=== PATIENT | male | born 1935 | race Caucasian/White ===

== ENCOUNTER 2017-06-20 14:00 | Inpatient (IN) | payer OTHER, MEDICARE ==
[~2017-06-20] VITALS: Ht 177.8 cm; Wt 68.4 kg
[2017-06-20] MEDS ORDERED: PIPERACILLIN/TAZOBACTAM 4.5 GM/100ML D5W IV STA (14:10)
[2017-06-20] MEDS ORDERED: SODIUM CHLORIDE 0.9% 1000ML 1,000 ML IV STA (14:10)
--- NOTE | 2017-06-20 14:37 | DIAGNOSTIC IMAGING REPORT ---
CHEST ONE VIEW PORTABLE CLINICAL HISTORY: Fever COMPARISON STUDY: No previous studies for comparison. FINDINGS: The heart is at the upper limits of normal in size. 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 There is no failure. There is indistinctness of the left cardiophrenic angle. This could indicate a minimal effusion, left basilar airspace opacity, or simply be cardiophrenic angle fat pad.[ IMPRESSION: 1. Indistinctness of the left cardiophrenic angle. This is nonspecific and could indicate a minimal effusion, left basal airspace opacity, or simply prominent cardiophrenic angle fat 2. No evidence of failure. Electronically signed by: Markus Mcdonnell M.D. 06/20/2017 2:36 PM Dictated Date/Time: 06/20/2017 2:34 PM
[2017-06-20] MEDS ORDERED: OPTIRAY 320 IV PRN (14:45)
[2017-06-20 15:03] LABS: ISTAT CREATININE 1.1 mg/dl (0.6-1.3); ISTAT IONIZED CALCIUM 1.21 mmol/l (1.12-1.32); ISTAT POTASSIUM 4.5 mEq/L (3.3-5.0)
[2017-06-20 15:27] LABS: BASO % 0.4 %; BASO ABS # 0.04 K/uL (0-0.2); EOS ABS # 0.21 K/uL (0-0.5); HEMATOCRIT 38.5 % (42-52); IG# 0.06 K/uL (0.00-0.02); LYMPH % 16.3 %; MEAN CELL VOLUME 92.1 fL (80-100); MEAN CORPUSCULAR HEMOGLOBIN 31.1 pg (25-34); MEAN CORPUSCULAR HGB CONC 33.8 g/dl (32-36); MEAN PLATELET VOLUME 9.6 fL (7.4-10.4); MONO % 13.4 %; MONO ABS # 1.39 K/uL (0.11-0.59); NEUT % 67.3 %; NEUT ABS # 7.01 K/uL (1.4-6.5); PLATELET COUNT 170 K/uL (130-400); RED CELL DISTRIBUTION WIDTH CV 14.1 % (11.5-14.5); RED CELL DISTRIBUTION WIDTH SD 47.5 fL (36.4-46.3); WHITE BLOOD COUNT 10.41 K/uL (4.8-10.8)
[2017-06-20] MEDS ORDERED: ZINC40OI13 TOP (15:27)
[2017-06-20] MEDS ORDERED: ACET650S10 PR (15:27)
[2017-06-20] MEDS ORDERED: FURO-85 PO (15:27)
[2017-06-20] MEDS ORDERED: CARB10TA6 PO ×2 (15:27)
[2017-06-20] MEDS ORDERED: ACET-1256 PO (15:27)
[2017-06-20] MEDS ORDERED: ASPI81TA28 PO (15:27)
[2017-06-20] MEDS ORDERED: ZINC1PST TOP (15:27)
[2017-06-20] MEDS ORDERED: ATOR10TA82 PO (15:27)
[2017-06-20] MEDS ORDERED: TRAZ50TA35 PO (15:27)
[2017-06-20] MEDS ORDERED: TERB1CRE32 TOP (15:27)
[2017-06-20] MEDS ORDERED: NZRCR TOP (15:27)
[2017-06-20] MEDS ORDERED: SENN-83 PO (15:27)
[2017-06-20] MEDS ORDERED: METO25TA3 PO (15:27)
[2017-06-20] MEDS ORDERED: ASPI300S PR (15:27)
[2017-06-20] MEDS ORDERED: CYAN10005 PO (15:27)
[2017-06-20] MEDS ORDERED: SELE1SHA3 TOP (15:27)
[2017-06-20] MEDS ORDERED: LEVO25TA5 PO (15:27)
[2017-06-20] MEDS ORDERED: GABA-113 PO (15:27)
[2017-06-20] MEDS ORDERED: WHITGEL TOP (15:27)
[2017-06-20 15:28] LABS: ALBUMIN 2.5 gm/dl (3.4-5.0); BLOOD UREA NITROGEN 20 mg/dl (7-18); CALCIUM 9.2 mg/dl (8.5-10.1); CARBON DIOXIDE 25 mmol/L (21-32); CREATININE 1.11 mg/dl (0.60-1.40); GLUCOSE 89 mg/dl (70-99); POTASSIUM 3.9 mmol/L (3.5-5.1); SODIUM 144 mmol/L (136-145)
[2017-06-20 15:29] LABS: ALT/SGPT 10 U/L (12-78); AST/SGOT 22 U/L (15-37)
[2017-06-20 15:31] LABS: ALKALINE PHOSPHATASE 82 U/L (45-117); CKMB 1.9 ng/ml (0.5-3.6); TOTAL PROTEIN 6.7 gm/dl (6.4-8.2)
[2017-06-20 15:35] LABS: INR 1.1 (0.9-1.1)
--- NOTE | 2017-06-20 15:45 | DIAGNOSTIC IMAGING REPORT ---
CT ABD/PELVIS IV CONTRAST ONLY CLINICAL HISTORY: Lower abdominal/scrotal drainage. UNRESPONSIVE PATIENT. COMPARISON STUDY: None. TECHNIQUE: Following the IV administration of 110 mL of Optiray-320, CT scan of the abdomen and pelvis was performed from the lung bases to the proximal femurs. Images are reviewed in the axial, sagittal, and coronal planes. IV contrast was administered without complication. A dose lowering technique was utilized adhering to the principles of ALARA. CT DOSE: 1163.73 mGy.cm FINDINGS: Lower chest: There are bibasal atelectatic changes. Liver: The contrast-enhanced liver is normal in size, contour, and attenuation. There is no intrahepatic biliary ductal dilatation. The hepatic veins and portal veins are patent. Gallbladder: Unremarkable. Spleen: Normal in size and attenuation. Pancreas: The pancreas is atrophic. There is no ductal dilatation. No masses are visualized. Adrenal glands: Unremarkable. Kidneys: There is a 15 mm lower pole left renal cyst. There are multiple right renal cysts including a septated complex 10 cm cyst containing septal calcifications. Bowel: There are no transition zones indicate bowel obstruction. The appendix appears normal. There is colonic diverticulosis. There are no acute peridiverticular inflammatory changes. Peritoneum: There is no intraperitoneal free air or abdominal ascites. Vasculature: The abdominal aorta is normal in course and caliber. Adenopathy: None. Pelvic viscera: There is a 5 cm fluid collection inferior to the anal verge. This contains gas bubbles. This likely represents an abscess. This may be localized to the posterior scrotum. Clinical correlation this regard is advocated. Skeletal structures: No destructive osseous lesions are seen. IMPRESSION: 1. No evidence of bowel obstruction. No evidence of free air 2. No evidence of acute diverticulitis. Normal appendix 3. Complex 10 cm right renal cyst with septal calcifications 4. 5 cm fluid collection inferior to the anal verge. This contains air bubbles and likely represents an abscess. This may be localized to the posterior scrotum. Clinical correlation in this regard is advocated Electronically signed by: Markus Mcdonnell M.D. 06/20/2017 3:44 PM Dictated Date/Time: 06/20/2017 3:38 PM
[2017-06-20] MEDS ORDERED: CLINDAMYCIN IV 900 MG in DEXTROSE 5% 100ML 100 ML IV STA (17:52)
[2017-06-20] MEDS ORDERED: PIPERACILL/TAZOBAC CONSULT ACTIVE PRN (18:15)
[2017-06-20] MEDS ORDERED: ACETAMINOPHEN 650 MG SUPP PR PRN (18:15)
[2017-06-20] MEDS ORDERED: HYDROmorphone INJ 0.5 MG/0.5 ML SYR IV PRN (18:15)
--- NOTE | 2017-06-20 18:25 | EMERGENCY ROOM VISIT NOTE ---
History Report prepared by Greg: Bing Avilez Under the Supervision of: Dr. Faizan Massey D.O. First contact with patient: 14:03 Chief Complaint: OTHER COMPLAINT History of Present Illness The patient is an 81 year old male who presents to the Emergency Room brought in by EMS with complaints of constant scrotum pain for five days. Per family, the patient has been complaining of genital pain and has been declining from his baseline for five days. Per family, the patient is normally communicative and awake. Per family, the patient denies any abdominal pain, though notes a cough at baseline. Per family, the patient woke up with his undershirt drenched in sweat. Per EMS, the patient was lethargic upon arrival and groans with a sternal rub. Per EMS, the patient's oxygen saturation was 91% on RA. The patient has Parkinson's disease. The patient is a DNR and the patient does not want intubation if he stops breathing. HPI is limited secondary to patient's condition. Source of History: family, EMS Onset: five day Position: other (scrotum) Quality: other (pain) Timing: constant Note: Notes declining from baseline and sweating. Review of Systems ROS is limited secondary to patient's condition. Past Medical & Surgical Medical Problems: (1) Parkinson disease (2) Scrotal abscess Family History No pertinent family history Social History Marital Status: Housing Status: lives with significant other Occupation Status: unemployed Current/Historical Medications Scheduled Aspirin (Aspirin Ec), 81 MG PO DAILY Atorvastatin (Lipitor), 10 MG PO DAILY Carbidopa-Levodopa (Carbidopa/Levodopa Odt), 1 TAB PO HS Carbidopa-Levodopa (Carbidopa/Levodopa Odt), 1 TAB PO TID Cyanocobalamin (Vitamin B-12), 1,000 MCG PO DAILY Furosemide (Lasix), 20 MG PO MWF Gabapentin (Neurontin), 300 MG PO TIDM Ketoconazole (Ketoconazole), 1 APPLN TOP BID Levothyroxine Sodium (Levothyroxine Sodium), 25 MCG PO QAM Metoprolol Succ (Toprol Xl) (Toprol-Xl), 12.5 MG PO HS Selenium Sulfide (Selsun Blue), 1 DOSE TOP 2XWK Sennosides-Docusate Sodium (Senexon-S), 3 TABS PO AMPM Terbinafine Hcl (Topical) (Lamisil At), 1 APPLN TOP HS Trazodone Hcl (Trazodone), 25 MG PO HS White Petrolatum (Petrolatum White), 1 APPLN TOP QAM Zinc Oxide (Topical) (Desitin), 1 APPLN TOP HS Zinc Oxide (Topical) (Desitin Maximum Strength), 1 APPLN TOP QS Scheduled PRN Acetaminophen (Tylenol), 500 MG PO Q4H PRN for Mild Pain Acetaminophen (Tylenol), 650 MG MN Q6H PRN for Temp Aspirin (Aspirin), 300 MG MN Q6H PRN for Temp Allergies Coded Allergies: No Known Allergies (Unverified , 06/20/17) Physical Exam Vital Signs Date Time Temp Pulse Resp B/P (MAP) Pulse Ox O2 Delivery O2 Flow Rate FiO2 06/20/17 17:57 60 16 123/79 98 Room Air 06/20/17 16:44 60 16 120/75 97 Room Air 06/20/17 15:18 61 06/20/17 14:50 60 14 103/67 97 Room Air 06/20/17 14:10 36.6 91 16 111/75 95 Room Air Physical Exam GENERAL: Lying in bed, ill-appearing, disheveled mild distress EYE EXAM: normal conjunctiva. eyes closed, PERRL OROPHARYNX: no exudate, no erythema, lips, buccal mucosa, and tongue normal and mucous membranes are moist NECK: supple, no nuchal rigidity, no adenopathy, non-tender LUNGS: Coarse breath sounds bilaterally. Normal chest wall mechanics HEART: no murmurs, S1 normal and S2 normal ABDOMEN: abdomen soft, non-tender, normo-active bowel sounds, no masses, no rebound or guarding. SKIN: no rashes and no bruising UPPER EXTREMITIES: upper extremities are grossly normal. LOWER EXTREMITIES: No pitting edema. : Scrotum is indurated and erythematous. Multiple large ulcers, red purulent drainage and induration bilaterally. Multiple small ulcers on inferior aspect of scrotum with one large ulcer with dark blood intermittently draining. Scrotum is indurated and firm. NEURO EXAM: Moans to sternal rub and moves UE and LE. Medical Decision & Procedures ER Provider Diagnostic Interpretation: Radiology results as stated below per my review and the radiologist's interpretation: CHEST ONE VIEW PORTABLE CLINICAL HISTORY: Fever COMPARISON STUDY: No previous studies for comparison. FINDINGS: The heart is at the upper limits of normal in size. 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 There is no failure. There is indistinctness of the left cardiophrenic angle. This could indicate a minimal effusion, left basilar airspace opacity, or simply be cardiophrenic angle fat pad.[ IMPRESSION: 1. Indistinctness of the left cardiophrenic angle. This is nonspecific and could indicate a minimal effusion, left basal airspace opacity, or simply prominent cardiophrenic angle fat 2. No evidence of failure. Electronically signed by: Markus Mcdonnell M.D. 06/20/2017 2:36 PM Dictated Date/Time: 06/20/2017 2:[address] ABD/PELVIS IV CONTRAST ONLY CLINICAL HISTORY: Lower abdominal/scrotal drainage. UNRESPONSIVE PATIENT. COMPARISON STUDY: None. TECHNIQUE: Following the IV administration of 110 mL of Optiray-320, CT scan of the abdomen and pelvis was performed from the lung bases to the proximal femurs. Images are reviewed in the axial, sagittal, and coronal planes. IV contrast was administered without complication. A dose lowering technique was utilized adhering to the principles of ALARA. CT DOSE: 1163.73 mGy.cm FINDINGS: Lower chest: There are bibasal atelectatic changes. Liver: The contrast-enhanced liver is normal in size, contour, and attenuation. There is no intrahepatic biliary ductal dilatation. The hepatic veins and portal veins are patent. Gallbladder: Unremarkable. Spleen: Normal in size and attenuation. Pancreas: The pancreas is atrophic. There is no ductal dilatation. No masses are visualized. Adrenal glands: Unremarkable. Kidneys: There is a 15 mm lower pole left renal cyst. There are multiple right renal cysts including a septated complex 10 cm cyst containing septal calcifications. Bowel: There are no transition zones indicate bowel obstruction. The appendix appears normal. There is colonic diverticulosis. There are no acute peridiverticular inflammatory changes. Peritoneum: There is no intraperitoneal free air or abdominal ascites. Vasculature: The abdominal aorta is normal in course and caliber. Adenopathy: None. Pelvic viscera: There is a 5 cm fluid collection inferior to the anal verge. This contains gas bubbles. This likely represents an abscess. This may be localized to the posterior scrotum. Clinical correlation this regard is advocated. Skeletal structures: No destructive osseous lesions are seen. IMPRESSION: 1. No evidence of bowel obstruction. No evidence of free air 2. No evidence of acute diverticulitis. Normal appendix 3. Complex 10 cm right renal cyst with septal calcifications 4. 5 cm fluid collection inferior to the anal verge. This contains air bubbles and likely represents an abscess. This may be localized to the posterior scrotum. Clinical correlation in this regard is advocated Electronically signed by: Markus Mcdonnell M.D. 06/20/2017 3:44 PM Dictated Date/Time: 06/20/2017 3:38 PM Laboratory Results 06/20/17 15:15 Red Blood Count 4.18, Mean Corpuscular Volume 92.1, Mean Corpuscular Hemoglobin 31.1, Mean Corpuscular Hemoglobin Concent 33.8, Mean Platelet Volume 9.6, Neutrophils (%) (Auto) 67.3, Lymphocytes (%) (Auto) 16.3, Monocytes (%) (Auto) 13.4, Eosinophils (%) (Auto) 2.0, Basophils (%) (Auto) 0.4, Neutrophils # (Auto ) 7.01, Lymphocytes # (Auto) 1.70, Monocytes # (Auto) 1.39, Eosinophils # (Auto ) 0.21, Basophils # (Auto) 0.04 06/20/17 14:36 Test 06/20/17 14:10 06/20/17 14:36 06/20/17 14:45 06/20/17 14:49 Est Creatinine Clear Calc Drug Dose 49.6 ml/min Estimated GFR () 71.3 Estimated GFR (Non- 61.5 BUN/Creatinine Ratio 18.4 (10-20) Calcium Level 9.2 mg/dl (8.5-10.1) Magnesium Level 2.2 mg/dl (1.8-2.4) Total Bilirubin 0.6 mg/dl (0.2-1) Direct Bilirubin 0.2 mg/dl (0-0.2) Aspartate Amino Transf (AST/SGOT) 22 U/L (15-37) Alanine Aminotransferase (ALT/SGPT) 10 U/L (12-78) Alkaline Phosphatase 82 U/L (45-117) Total Creatine Kinase 49 U/L (39-308) Creatine Kinase MB 1.9 ng/ml (0.5-3.6) Creatine Kinase MB Ratio 3.9 (0-3.0) Troponin I < 0.015 ng/ml (0-0.045) Total Protein 6.7 gm/dl (6.4-8.2) Albumin 2.5 gm/dl (3.4-5.0) Bedside Lactic Acid Venous 1.24 mmol/L (0.90-1.70) Bedside Hemoglobin 13.3 g/dl (14.0-18.0) Bedside Hematocrit 39 % (42-52) Bedside Sodium 143 mEq/L (135-144) Bedside Potassium 4.5 mEq/L (3.3-5.0) Bedside Chloride 104 mEq/L (101-112) Bedside Total CO2 27 mEq/l (24-31) Anion Gap 17.0 mmol/L (16-25) Bedside Blood Urea Nitrogen 21 mg/dl (7-18) Bedside Creatinine 1.1 mg/dl (0.6-1.3) Bedside Glucose (other) 93 mg/dl (70-99) Bedside Ionized Calcium (Demetra) 1.21 mmol/l (1.12-1.32) Test 06/20/17 15:15 White Blood Count 10.41 K/uL (4.8-10.8) Red Blood Count 4.18 M/uL (4.7-6.1) Hemoglobin 13.0 g/dL (14.0-18.0) Hematocrit 38.5 % (42-52) Mean Corpuscular Volume 92.1 fL (80-100) Mean Corpuscular Hemoglobin 31.1 pg (25-34) Mean Corpuscular Hemoglobin Concent 33.8 g/dl (32-36) Platelet Count 170 K/uL (130-400) Mean Platelet Volume 9.6 fL (7.4-10.4) Neutrophils (%) (Auto) 67.3 % Lymphocytes (%) (Auto) 16.3 % Monocytes (%) (Auto) 13.4 % Eosinophils (%) (Auto) 2.0 % Basophils (%) (Auto) 0.4 % Neutrophils # (Auto) 7.01 K/uL (1.4-6.5) Lymphocytes # (Auto) 1.70 K/uL (1.2-3.4) Monocytes # (Auto) 1.39 K/uL (0.11-0.59) Eosinophils # (Auto) 0.21 K/uL (0-0.5) Basophils # (Auto) 0.04 K/uL (0-0.2) RDW Standard Deviation 47.5 fL (36.4-46.3) RDW Coefficient of Variation 14.1 % (11.5-14.5) Immature Granulocyte % (Auto) 0.6 % Immature Granulocyte # (Auto) 0.06 K/uL (0.00-0.02) Prothrombin Time 11.6 SECONDS (9.0-12.0) Prothromb Time International Ratio 1.1 (0.9-1.1) Laboratory results per my review. Medications Administered Medications (Trade) Dose Ordered Sig/Julissa Route Start Time Stop Time Status Last Admin Dose Admin Sodium Chloride 1,000 ml @ 999 mls/hr Q1H1M STAT IV 06/20/17 14:10 06/20/17 15:10 DC 06/20/17 14:15 999 MLS/HR Piperacillin Sod/ Tazobactam Sod (Zosyn Iv) 4.5 gm NOW STAT IV 06/20/17 14:10 06/20/17 14:12 DC 06/20/17 14:10 4.5 GM Clindamycin Phosphate 900 mg/ Dextrose 106 ml @ 100 mls/hr ONE STAT IV 06/20/17 17:52 06/20/17 18:55 06/20/17 18:15 100 MLS/HR ED Course ED COURSE: Vital signs were reviewed and showed normal. The patients medical record was reviewed The above diagnostic studies were performed and reviewed. ED treatments and interventions as stated above. 1406: The patient was evaluated in room A11B. A complete history and physical examination was performed. 1410: Ordered Zosyn 4.5 gm IV and Sodium Chloride 1,000 ml @ 999 mls/hr IV 1610: I reassessed the patient at this time. I updated the patient's family. 1614: I spoke with Dr. Clark, urologist. We discussed the patient's case. He recommends consulting with [facility] u[facility] as they have never established care with this patient. 1620: I spoke with Dr. Mehta, urologist. We discussed the patient's case. The patient will be further evaluated. 1700: Upon reevaluation, the patient's family was updated. I discussed my findings with the patient's family and they understand and agree with the treatment plan. Based on the patients age, coexisting illnesses, exam and lab findings the decision to treat as an inpatient was made. The patient remained stable while under my care. The patient will be evaluated for further management. 171: I spoke with Dr. Oviedo [facility] arpita. We discussed the patient' s case. [facility] Medical Decision Differential diagnosis includes etiologies such as sepsis, UTI, pneumonia, metabolic, electrolyte abnormalities, cardiac sources, intracerebral event, toxicologic, neurologic, as well as others were entertained. Patient is an 81-year-old male who presents to ER for altered mental status associated with a large scrotal lesion. On exam he has a large indurated and swollen scrotum which is foul-smelling in combination with a dark red drainage. This does appear to be an abscess. CT was performed and confirms this. Discussed with neurology who recommended admission and IV antibiotics. They will eventually evaluate him. Patient was given IV Zosyn and fluids. Update the at bedside. He is a DNR/DNI. CBC along with BMP, LFTs, bilirubin and troponin was unremarkable. Patient was admitted to internal medicine for further workup. Medication Reconcilliation Current Medication List: was personally reviewed by me Blood Pressure Screening Patient's blood pressure: Normal blood pressure Consults Time Called: 161 Consulting Physician: Dr. Clark urologist Returned Call: 1614 I spoke with almita Hammond. We discussed the patient's case. He recommends consulting with [facility] u[facility] as they have never established care with this patient. Additional Consults: Time Called: 1616 Consulted Physician: almita Quan Returned Call: 1620 Additional Comments: I spoke with almita Quan. We discussed the patient's case. The patient will be further evaluated. Time Called: 171 Consulted Physician: Dr. Oviedo [facility] arpita Additional Comments: I spoke with Anum Peralta arpita. We discussed the patient's case. [facility] Impression Primary Impression: Scrotal abscess Scribe Attestation The scribe's documentation has been prepared under my direction and personally reviewed by me in its entirety. I confirm that the note above accurately reflects all work, treatment, procedures, and medical decision making performed by me. Departure Information Dispostion Being Evaluated By Hospitalist Referrals Viridiana Hooper M.D. (PCP) Patient Instructions My [facility]
--- NOTE | 2017-06-20 18:27 | History and Physical ---
History & Physical Date & Time of Service: Jun 20, 2017 at 18:22 . Chief Complaint: fever, sweats, altered mental status . Primary Care Physician: Viridiana Hooper M.D. . History of Present Illness Source: family, fpc 81-year-old male followed by Dr. Hooper at [facility]. History of ischemic heart disease, Parkinson's disease, dementia, carcinoma of prostate treated with radiation therapy, and other problems noted below. Has advanced dementia. Requires walker + assistance with ambulation. Recently developed scrotal tenderness; arrangements made for outpatient evaluation by Urology. Today the patient had fever, sweats, increasing lethargy and confusion. Noted to have drainage from the scrotum. Brought to the ED for evaluation. The patient is unable to provide any additional history due to his neurologic status. . Past Medical/Surgical History Chronic abd Resolved Medical Problems: (1) Coronary artery disease Status: Chronic (2) Dementia Status: Chronic (3) GERD (gastroesophageal reflux disease) Status: Chronic (4) History of prostate cancer Permanent Comment: status post radiation therapy Status: Chronic (5) History of skin cancer Status: Chronic (6) Hypertension Status: Chronic (7) Parkinson disease Status: Chronic (8) Paroxysmal atrial fibrillation Status: Chronic Surgical Problems: (1) Status post implantation of automatic cardioverter/defibrillator (AICD) Status: Chronic . Family History FATHER Cancer MOTHER Stroke BROTHER Cancer Social History Smoking Status: Never Smoker Alcohol Use: none Marital Status: Housing status: fpc Occupational Status: retired ([employer] Engineer) Allergies Coded Allergies: No Known Allergies (Unverified , 06/20/17) Home Medications Scheduled Aspirin (Aspirin Ec), 81 MG PO DAILY Atorvastatin (Lipitor), 10 MG PO DAILY Carbidopa-Levodopa (Carbidopa/Levodopa Odt), 1 TAB PO HS Carbidopa-Levodopa (Carbidopa/Levodopa Odt), 1 TAB PO TID Cyanocobalamin (Vitamin B-12), 1,000 MCG PO DAILY Furosemide (Lasix), 20 MG PO MWF Gabapentin (Neurontin), 300 MG PO TIDM Ketoconazole (Ketoconazole), 1 APPLN TOP BID Levothyroxine Sodium (Levothyroxine Sodium), 25 MCG PO QAM Metoprolol Succ (Toprol Xl) (Toprol-Xl), 12.5 MG PO HS Selenium Sulfide (Selsun Blue), 1 DOSE TOP 2XWK Sennosides-Docusate Sodium (Senexon-S), 3 TABS PO AMPM Terbinafine Hcl (Topical) (Lamisil At), 1 APPLN TOP HS Trazodone Hcl (Trazodone), 25 MG PO HS White Petrolatum (Petrolatum White), 1 APPLN TOP QAM Zinc Oxide (Topical) (Desitin), 1 APPLN TOP HS Zinc Oxide (Topical) (Desitin Maximum Strength), 1 APPLN TOP QS Scheduled PRN Acetaminophen (Tylenol), 500 MG PO Q4H PRN for Mild Pain Acetaminophen (Tylenol), 650 MG [place] Q6H PRN for Temp Aspirin (Aspirin), 300 MG AZ Q6H PRN for Temp Review of Systems Unable to obtain due to patient condition. . Physical Exam Vital Signs Date Time Temp Pulse Resp B/P (MAP) Pulse Ox O2 Delivery O2 Flow Rate FiO2 06/20/17 17:57 60 16 123/79 98 Room Air 06/20/17 16:44 60 16 120/75 97 Room Air 06/20/17 15:18 61 06/20/17 14:50 60 14 103/67 97 Room Air 06/20/17 14:10 36.6 91 16 111/75 95 Room Air CONSTITUTIONAL vital signs as noted above elderly male, somnolent, no acute distress EYES conjunctivae clear; lids normal pupils equal and reactive to light EARS, NOSE, MOUTH AND THROAT external inspection of ears and nose unremarkable unable to assess hearing oropharynx exam limited NECK no masses; trachea midline thyroid normal RESPIRATORY normal respiratory effort; no respiratory distress clear to auscultation CARDIOVASCULAR regular rate and rhythm no murmur, gallop, rub appreciated carotid arteries 2/2 abdominal aorta not palpable pedal pulses diminished capillary refill toes ~ 2 seconds 2+ right pretibial edema; no left pretibial edema GASTROINTESTINAL normal bowel sounds, soft, nontender; no palpable masses no hepatomegaly; no splenomegaly Uncircumcised male. Induration, erythema, tenderness posterior scrotum with foul-smelling drainage. LYMPHATIC no cervical adenopathy MUSCULOSKELETAL no cyanosis; no digital clubbing no apparent calf tenderness unable to assess motor strength due to patient's condition SKIN no rash warm and dry NEUROLOGIC PERRL resting tremor moderate cogwheel rigidity of upper extremities patellar DTR's 1/2 PSYCHIATRIC obtunded . Diagnostics Laboratory Results Results Past 24 Hours Test 06/20/17 14:10 06/20/17 14:36 06/20/17 14:45 06/20/17 14:49 Range/Units Sodium Level 144 136-145 mmol/L Potassium Level 3.9 3.5-5.1 mmol/L Chloride Level 107 98-107 mmol/L Carbon Dioxide Level 25 21-32 mmol/L Anion Gap 12.0 17.0 16-25 mmol/L Blood Urea Nitrogen 20 7-18 mg/dl Creatinine 1.11 0.60-1.40 mg/dl Est Creatinine Clear Calc Drug Dose 49.6 ml/min Estimated GFR () 71.3 Estimated GFR (Non- 61.5 BUN/Creatinine Ratio 18.4 10-20 Random Glucose 89 70-99 mg/dl Calcium Level 9.2 8.5-10.1 mg/dl Magnesium Level 2.2 1.8-2.4 mg/dl Total Bilirubin 0.6 0.2-1 mg/dl Direct Bilirubin 0.2 0-0.2 mg/dl Aspartate Amino Transf (AST/SGOT) 22 15-37 U/L Alanine Aminotransferase (ALT/SGPT) 10 12-78 U/L Alkaline Phosphatase 82 45-117 U/L Total Creatine Kinase 49 39-308 U/L Creatine Kinase MB 1.9 0.5-3.6 ng/ml Creatine Kinase MB Ratio 3.9 0-3.0 Troponin I < 0.015 0-0.045 ng/ml Total Protein 6.7 6.4-8.2 gm/dl Albumin 2.5 3.4-5.0 gm/dl Bedside Lactic Acid Venous 1.24 0.90-1.70 mmol/L Bedside Hemoglobin 13.3 14.0-18.0 g/dl Bedside Hematocrit 39 42-52 % Bedside Sodium 143 135-144 mEq/L Bedside Potassium 4.5 3.3-5.0 mEq/L Bedside Chloride 104 101-112 mEq/L Bedside Total CO2 27 24-31 mEq/l Bedside Blood Urea Nitrogen 21 7-18 mg/dl Bedside Creatinine 1.1 0.6-1.3 mg/dl Bedside Glucose (other) 93 70-99 mg/dl Bedside Ionized Calcium (Demetra) 1.21 1.12-1.32 mmol/l Test 06/20/17 15:15 Range/Units White Blood Count 10.41 4.8-10.8 K/uL Red Blood Count 4.18 4.7-6.1 M/uL Hemoglobin 13.0 14.0-18.0 g/dL Hematocrit 38.5 42-52 % Mean Corpuscular Volume 92.1 80-100 fL Mean Corpuscular Hemoglobin 31.1 25-34 pg Mean Corpuscular Hemoglobin Concent 33.8 32-36 g/dl Platelet Count 170 130-400 K/uL Mean Platelet Volume 9.6 7.4-10.4 fL Neutrophils (%) (Auto) 67.3 % Lymphocytes (%) (Auto) 16.3 % Monocytes (%) (Auto) 13.4 % Eosinophils (%) (Auto) 2.0 % Basophils (%) (Auto) 0.4 % Neutrophils # (Auto) 7.01 1.4-6.5 K/uL Lymphocytes # (Auto) 1.70 1.2-3.4 K/uL Monocytes # (Auto) 1.39 0.11-0.59 K/uL Eosinophils # (Auto) 0.21 0-0.5 K/uL Basophils # (Auto) 0.04 0-0.2 K/uL RDW Standard Deviation 47.5 36.4-46.3 fL RDW Coefficient of Variation 14.1 11.5-14.5 % Immature Granulocyte % (Auto) 0.6 % Immature Granulocyte # (Auto) 0.06 0.00-0.02 K/uL Prothrombin Time 11.6 9.0-12.0 SECONDS Prothromb Time International Ratio 1.1 0.9-1.1 Microbiology Results 06/20/17 Blood Culture, Received Pending 06/20/17 Blood Culture, Received Pending Diagnostic Radiology CHEST ONE VIEW PORTABLE FINDINGS: The heart is at the upper limits of normal in size. 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 There is no failure. There is indistinctness of the left cardiophrenic angle. This could indicate a minimal effusion, left basilar airspace opacity, or simply be cardiophrenic angle fat pad.[ IMPRESSION: 1. Indistinctness of the left cardiophrenic angle. This is nonspecific and could indicate a minimal effusion, left basal airspace opacity, or simply prominent cardiophrenic angle fat 2. No evidence of failure. Electronically signed by: Markus Mcdonnell M.D. 06/20/2017 2:36 PM Dictated Date/Time: 06/20/2017 2:[address] ABD/PELVIS IV CONTRAST ONLY FINDINGS: Lower chest: There are bibasal atelectatic changes. Liver: The contrast-enhanced liver is normal in size, contour, and attenuation. There is no intrahepatic biliary ductal dilatation. The hepatic veins and portal veins are patent. Gallbladder: Unremarkable. Spleen: Normal in size and attenuation. Pancreas: The pancreas is atrophic. There is no ductal dilatation. No masses are visualized. Adrenal glands: Unremarkable. Kidneys: There is a 15 mm lower pole left renal cyst. There are multiple right renal cysts including a septated complex 10 cm cyst containing septal calcifications. Bowel: There are no transition zones indicate bowel obstruction. The appendix appears normal. There is colonic diverticulosis. There are no acute peridiverticular inflammatory changes. Peritoneum: There is no intraperitoneal free air or abdominal ascites. Vasculature: The abdominal aorta is normal in course and caliber. Adenopathy: None. Pelvic viscera: There is a 5 cm fluid collection inferior to the anal verge. This contains gas bubbles. This likely represents an abscess. This may be localized to the posterior scrotum. Clinical correlation this regard is advocated. Skeletal structures: No destructive osseous lesions are seen. IMPRESSION: 1. No evidence of bowel obstruction. No evidence of free air 2. No evidence of acute diverticulitis. Normal appendix 3. Complex 10 cm right renal cyst with septal calcifications 4. 5 cm fluid collection inferior to the anal verge. This contains air bubbles and likely represents an abscess. This may be localized to the posterior scrotum. Clinical correlation in this regard is advocated Electronically signed by: Markus Mcdonnell M.D. 06/20/2017 3:44 PM Dictated Date/Time: 06/20/2017 3:38 PM . EKG EKG performed at 1421 reviewed and demonstrated ventricular paced rhythm at 70/ minute. . Impression Assessment and Plan SCROTAL ABSCESS Clinical and CT findings as noted above. Acutely ill, but does not meet criteria for sepsis at time of admission. Blood cultures obtained. Check wound culture. Received intravenous piperacillin/tazobactam in the ED which will be continued. Add IV clindamycin. Urology consulted. ALTERED MENTAL STATUS Probable encephalopathy secondary to scrotal abscess. EDEMA RIGHT LOWER EXTREMITY Check venous duplex to rule out DVT. CORONARY ARTERY DISEASE Continue metoprolol as hemodynamics allow. Hold aspirin for anticipated I&D; resume postop when able. HYPERTENSION Continue metoprolol as hemodynamics allow. PARKINSON'S DISEASE Continue carbidopa/levodopa. Fall precautions. Pureed diet with aspiration precautions when able to resume PO intake postop. PT / OT when clinical status permits. DEMENTIA Advanced dementia with superimposed delirium. Avoid anticholinergic medications and other meds with INTAKE NURSE side effects whenever possible. COMPLEX RIGHT RENAL CYST Noted on CT. Conservative management anticipated in light of multiple comorbidities. VTE PROPHYLAXIS Initial prophylaxis with SCDs if venous duplex right lower extremity negative for DVT. Prophylaxis with low-dose heparin or enoxaparin postoperatively. RESUSCITATION STATUS Discussed with who is the durable power of corporate associate attorney. Code status is DNR. Temporary intubation for general anesthesia if necessary would be permissible. DISPOSITION Admit to Med-Surg Unit. Anticipated return to [facility] when medically stable. . Resuscitation Status VTE Prophylaxis Will order VTE Prophylaxis: Yes
[2017-06-20 19:18] VITALS: O2SAT 95; Ht 177.8 cm; Wt 68.4 kg
[2017-06-20] MEDS: PIPERACILL/TAZOBAC IV 3.375 GM in DEXTROSE 5% 100ML 100 ML IV SCH (20:02)
[2017-06-20] MEDS: D5W AND LACTATED RINGERS 1,000 ML IV SCH (20:02)
[2017-06-20] MEDS: CARBIDOPA/LEVODOPA 10/100MG TAB PO SCH (20:28)
[2017-06-20] MEDS: METOPROLOL SUCC 25MG EXT REL TAB PO SCH (20:28)
--- NOTE | 2017-06-20 23:36 | Urology Consultation ---
History General Date of Service: Jun 20, 2017. Primary Care Physician: Viridiana Hooper M.D. Pt seen a urologist before?: No History of Present Illness 81 y/o male. Presented to ED with lethargy and altered mental status. Over the last few days it was noted that his scrotum was becoming red and swollen. Outpt f/u was arranged, however in the interim his clinical condition changed. He had fever and more swelling with drainage. He was brought to the ED for further evaluation. WBC: 10 CT Scan performed. That showed a 5cm abscess in the area of the scrotum/anal verge. No air in the soft tissue. The patient is restful. Awake, but slow to respond. Some pain response when examined. There is no urologic history to note. Imaging Imaging: CT Laboratory Labs were reviewed and are within normal limits unless listed below. Labs are available in the chart and at [facility] Past History other Past Surgical History: other Family History Cancer FATHER BROTHER Stroke MOTHER Social History Smoking: non-smoker Alcohol: no current use Marital status: Housing status: correction Occupation status: retired ([employer] Administrator) Allergies Coded Allergies: No Known Allergies (Unverified , 06/20/17) Medications Home Medications: Home Meds and Scripts Medications Dose Route/Sig Max Daily Dose Days Date Category Dose Instructions Vitamin B-12 (Cyanocobalamin) 1,000 Mcg Tab 1,000 Mcg PO DAILY 06/20/17 Reported Trazodone (Trazodone HCl) 50 Mg Tab 25 Mg PO HS 06/20/17 Reported Senexon-S (Sennosides-Docusate Sodium) 1 Tab Tab 3 Tabs PO AMPM 06/20/17 Reported Petrolatum White (White Petrolatum) 1 Gel Gel 1 Appln TOP QAM 06/20/17 Reported APPLY TO ALL TOENAILS Toprol-Xl (Metoprolol Succinate) 25 Mg Tabcr 12.5 Mg PO HS 06/20/17 Reported HOLD IF HR IS 60 OR LESS. HOLD IF SBP IS 105 OR LESS Levothyroxine Sodium 25 Mcg Tab 25 Mcg PO QAM 06/20/17 Reported Neurontin (Gabapentin) 300 Mg Cap 300 Mg PO TIDM 06/20/17 Reported Lasix (Furosemide) 20 Mg Tab 20 Mg PO MWF 06/20/17 Reported HOLD OF SBP 105 OR LESS Desitin Maximum Strength (Zinc Oxide (Topical)) 40 % Pst 1 Appln TOP QS 06/20/17 Reported APPLY THICK LAYER TO LEFT SCROTUM Carbidopa/Levodopa Odt (Carbidopa-Levodopa) 1 Tab Tab 1 Tab PO TID 06/20/17 Reported 25MG/100MG Carbidopa/Levodopa Odt (Carbidopa-Levodopa) 1 Tab Tab 1 Tab PO HS 06/20/17 Reported 10MG/100MG Lipitor (Atorvastatin Calcium) 10 Mg Tab 10 Mg PO DAILY 06/20/17 Reported Aspirin Ec (Aspirin) 81 Mg Tab 81 Mg PO DAILY 06/20/17 Reported Selsun Blue (Selenium Sulfide) 1 % Sha 1 Dose TOP 2XWK 06/20/17 Reported LATHER HEAD AND AROUND EARS BEFORE SHOWER ON WEDNESDAY AND WEDNESDAY LEAVE ON HEAD UNTIL BATH COMPLETE AND THEN RINSE OFF. LEAVE ON 20 MINUTES Lamisil At (Terbinafine Hcl (Topical)) 1 % Cre 1 Appln TOP HS 06/20/17 Reported APPLY TO ALL TOENAILS Ketoconazole 45 Appln/15 Gm Cr 1 Appln TOP BID 06/20/17 Reported APPLY TO SCALP AND BEHIND RIGHT EAR Desitin (Zinc Oxide (Topical)) 40 % Oin 1 Appln TOP HS 06/20/17 Reported APPLY TO COCCYX FOLLOWED BY STOMAHESIVE POWDER Aspirin 300 Mg Sup 300 Mg IA Q6H PRN 06/20/17 Reported TEMP >100 IF TYLENOL SUPP ISN'T EFFECTIVE Tylenol (Acetaminophen) 650 Mg Supp 650 Mg IA Q6H PRN 06/20/17 Reported TEMP >100 Tylenol (Acetaminophen) 500 Mg Tab 500 Mg PO Q4H PRN 06/20/17 Reported Inpatient Medications: Current Inpatient Medications Medications (Trade) Dose Ordered Sig/Julissa Route Start Time Stop Time Status Last Admin Dose Admin Ioversol (Optiray 320) 100 ml UD PRN IV 06/20/17 14:45 06/24/17 14:44 Dextrose/Lactated Ringer's 1,000 ml @ 150 mls/hr Q6H40M IV 06/20/17 19:38 07/20/17 19:37 06/20/17 20:02 150 MLS/HR Metoprolol Succinate (Toprol Xl Tab) 12.5 mg HS PO 06/20/17 21:00 07/20/17 20:59 06/20/17 20:28 12.5 MG Carbidopa/Levodopa (Sinemet 10/ 100MG Tab) 1 tab HS PO 06/20/17 21:00 07/20/17 20:59 06/20/17 20:28 1 TAB Carbidopa/Levodopa (Sinemet 25/ 100MG Tab) 1 tab TID@0700,1200,1700 PO 06/21/17 07:00 07/21/17 06:59 Hydromorphone HCl (Dilaudid Inj) 0.5 mg Q2H PRN IV 06/20/17 18:15 07/04/17 18:14 Acetaminophen (Tylenol Supp) 650 mg Q4H PRN IA 06/20/17 18:15 07/20/17 18:14 Clindamycin Phosphate 900 mg/ Dextrose 106 ml @ 100 mls/hr Q8@0200,1000,1800 IV 06/21/17 02:00 07/01/17 01:59 Piperacillin Sod/ Tazobactam Sod 3.375 gm/Dextrose 115 ml @ 28.75 mls/ hr Q8@0400,1200,2000 IV 06/20/17 20:00 06/30/17 19:59 06/20/17 20:02 28.75 MLS/HR Miscellaneous Information (Consult) 1 ea UD PRN N/A 06/20/17 18:15 07/20/17 18:14 Review of Systems Review of Systems All Other Systems: Reviewed and Negative Physical Exam Vital Signs: Vital Signs Past 12 Hours Date Time Temp Pulse Resp B/P (MAP) Pulse Ox O2 Delivery O2 Flow Rate FiO2 06/20/17 19:18 95 Room Air 06/20/17 18:58 60 16 109/76 95 06/20/17 17:57 60 16 123/79 98 Room Air 06/20/17 16:44 60 16 120/75 97 Room Air 06/20/17 15:18 61 06/20/17 14:50 60 14 103/67 97 Room Air 06/20/17 14:10 36.6 91 16 111/75 95 Room Air Physical Exam: General Appearance: no apparent distress ENT: normal ENT inspection Neck: supple Respiratory/Chest: chest non-tender Cardiovascular: regular rate, rhythm Extremities: non-tender Neurologic/Psychiatric: alert Skin: normal color, + pertinent finding Lymphatic: no adenopathy Additional Comments: Scrotum is warm, erythematous, and indurated. There are several ulcerative areas. Some drainage at one point. Assessment & Plan Assessment & Plan (1) Scrotal abscess Status: Acute (2) Dementia Status: Chronic Pt has scrotal abscess. WBC not overly elevated. HD stable. Currently on broad spectrum abx. Unfortunately, the patient was fed in the ER so we were unable to go to the OR today. The patient did not seem that he would tolerate a bedside I & D. Rec making the pt NPO at midnight for tentative plans to go to OR tomorrow. Will need drainage and packing. Continue local wound care in the interim.
[2017-06-20 23:39] VITALS: BP 92/54; PULSE 59; TEMP 36.9; O2SAT 99
[2017-06-21] VITALS (8 sets, daily range): BP systolic 108–142; BP diastolic 60–82; PULSE 60–73; TEMP 36.3–36.8; O2SAT 95–100
[2017-06-21] MEDS: D5W AND LACTATED RINGERS 1,000 ML IV SCH ×3 (02:14→18:37)
[2017-06-21] MEDS: CLINDAMYCIN IV 900 MG in DEXTROSE 5% 100ML 100 ML IV SCH ×3 (02:14→17:30)
[2017-06-21] MEDS ORDERED: SODIUM CHLORIDE 0.9% 500ML 500 ML IV SCH (02:15)
[2017-06-21] MEDS: PIPERACILL/TAZOBAC IV 3.375 GM in DEXTROSE 5% 100ML 100 ML IV SCH ×3 (04:17→20:26)
--- NOTE | 2017-06-21 07:07 | DIAGNOSTIC IMAGING REPORT ---
R VENOUS DOPP LOWER EXT UNILAT CLINICAL HISTORY: edema RLE pain. Edema. TECHNIQUE: Venous Doppler COMPARISON STUDY: None FINDINGS: Normal study IMPRESSION: Normal study The above report was generated using voice recognition software. It may contain grammatical, syntax or spelling errors. Electronically signed by: Aldo Casas M.D. 06/21/2017 7:06 AM Dictated Date/Time: 06/21/2017 7:06 AM
[2017-06-21 07:13] LABS: HEMATOCRIT 41.2 % (42-52); HEMOGLOBIN 13.5 g/dL (14.0-18.0); MEAN CELL VOLUME 92.2 fL (80-100); MEAN CORPUSCULAR HEMOGLOBIN 30.2 pg (25-34); MEAN CORPUSCULAR HGB CONC 32.8 g/dl (32-36); MEAN PLATELET VOLUME 9.6 fL (7.4-10.4); PLATELET COUNT 173 K/uL (130-400); RED CELL DISTRIBUTION WIDTH SD 47.3 fL (36.4-46.3); WHITE BLOOD COUNT 8.77 K/uL (4.8-10.8)
[2017-06-21 07:33] LABS: CALCIUM 8.6 mg/dl (8.5-10.1); CREATININE 0.98 mg/dl (0.60-1.40); POTASSIUM 3.8 mmol/L (3.5-5.1)
[2017-06-21] MEDS: CARBIDOPA/LEVODOPA 25/100MG TAB PO SCH ×3 (08:54→17:29)
[2017-06-21] MEDS ORDERED: NURSING VERBAL MED ORDER ONE (12:00)
--- NOTE | 2017-06-21 12:52 | Progress Note ---
Subjective Date of Service: Jun 21, 2017. Subjective Pt evaluation today including: conversation w/ patient, conversation w/ family , physical exam, chart review Voiding: no voiding problems Patient has no complaint. He has voiced no pain since the abscess drained 2 days ago at the [facility]. He has not had a fever and his white count is now normal. He has been NPO except meds in anticipation of debridement this evening. Review of Systems Constitutional: + weight loss, + fatigue, No fever Respiratory: + cough, + sputum, No shortness of breath Abdomen: No nausea, No vomiting, No diarrhea Male : No dysuria Endo: + fatigue Objective Vital Signs Date Time Temp Pulse Resp B/P (MAP) Pulse Ox O2 Delivery O2 Flow Rate FiO2 06/21/17 12:16 36.3 60 18 134/82 (99) 100 Room Air 06/21/17 11:45 Room Air 06/21/17 09:16 97 Room Air 06/21/17 07:44 36.7 62 18 126/76 (93) 97 Room Air 06/21/17 00:00 95 Room Air 06/20/17 23:39 36.9 59 19 92/54 (67) 99 Room Air 06/20/17 19:18 95 Room Air 06/20/17 18:58 60 16 109/76 95 06/20/17 17:57 60 16 123/79 98 Room Air 06/20/17 16:44 60 16 120/75 97 Room Air 06/20/17 15:18 61 06/20/17 14:50 60 14 103/67 97 Room Air 06/20/17 14:10 36.6 91 16 111/75 95 Room Air Physical Exam General Appearance: + thin, + pertinent finding (frail, pale, says little) Respiratory/Chest: + pertinent finding (wet cough) Comments: the anterior scrotum is normal with a bit if edema. The posterior scrotum is darkly discolored and there are 2 ulcers, the posterior midlineone in the midst of a ballotable fluid collection. I prepped the area with betadine and punctured the ulcer with scissors and enlarged the opening. I drained 100mL of dark foul smelling bloody fluid. I packed the pocket with a plain gauze. Laboratory Results Last 24 Hours Test 06/20/17 14:36 06/20/17 14:45 06/20/17 14:49 06/20/17 15:15 Sodium Level 144 mmol/L Potassium Level 3.9 mmol/L Chloride Level 107 mmol/L Carbon Dioxide Level 25 mmol/L Anion Gap 12.0 mmol/L 17.0 mmol/L Blood Urea Nitrogen 20 mg/dl Creatinine 1.11 mg/dl Est Creatinine Clear Calc Drug Dose 49.6 ml/min Estimated GFR () 71.3 Estimated GFR (Non- 61.5 BUN/Creatinine Ratio 18.4 Random Glucose 89 mg/dl Calcium Level 9.2 mg/dl Magnesium Level 2.2 mg/dl Total Bilirubin 0.6 mg/dl Direct Bilirubin 0.2 mg/dl Aspartate Amino Transf (AST/SGOT) 22 U/L Alanine Aminotransferase (ALT/SGPT) 10 U/L Alkaline Phosphatase 82 U/L Total Creatine Kinase 49 U/L Creatine Kinase MB 1.9 ng/ml Creatine Kinase MB Ratio 3.9 Troponin I < 0.015 ng/ml Total Protein 6.7 gm/dl Albumin 2.5 gm/dl Bedside Lactic Acid Venous 1.24 mmol/L Bedside Hemoglobin 13.3 g/dl Bedside Hematocrit 39 % Bedside Sodium 143 mEq/L Bedside Potassium 4.5 mEq/L Bedside Chloride 104 mEq/L Bedside Total CO2 27 mEq/l Bedside Blood Urea Nitrogen 21 mg/dl Bedside Creatinine 1.1 mg/dl Bedside Glucose (other) 93 mg/dl Bedside Ionized Calcium (Demetra) 1.21 mmol/l White Blood Count 10.41 K/uL Red Blood Count 4.18 M/uL Hemoglobin 13.0 g/dL Hematocrit 38.5 % Mean Corpuscular Volume 92.1 fL Mean Corpuscular Hemoglobin 31.1 pg Mean Corpuscular Hemoglobin Concent 33.8 g/dl Platelet Count 170 K/uL Mean Platelet Volume 9.6 fL Neutrophils (%) (Auto) 67.3 % Lymphocytes (%) (Auto) 16.3 % Monocytes (%) (Auto) 13.4 % Eosinophils (%) (Auto) 2.0 % Basophils (%) (Auto) 0.4 % Neutrophils # (Auto) 7.01 K/uL Lymphocytes # (Auto) 1.70 K/uL Monocytes # (Auto) 1.39 K/uL Eosinophils # (Auto) 0.21 K/uL Basophils # (Auto) 0.04 K/uL RDW Standard Deviation 47.5 fL RDW Coefficient of Variation 14.1 % Immature Granulocyte % (Auto) 0.6 % Immature Granulocyte # (Auto) 0.06 K/uL Prothrombin Time 11.6 SECONDS Prothromb Time International Ratio 1.1 Test 06/21/17 06:54 White Blood Count 8.77 K/uL Red Blood Count 4.47 M/uL Hemoglobin 13.5 g/dL Hematocrit 41.2 % Mean Corpuscular Volume 92.2 fL Mean Corpuscular Hemoglobin 30.2 pg Mean Corpuscular Hemoglobin Concent 32.8 g/dl RDW Standard Deviation 47.3 fL RDW Coefficient of Variation 14.0 % Platelet Count 173 K/uL Mean Platelet Volume 9.6 fL Sodium Level 139 mmol/L Potassium Level 3.8 mmol/L Chloride Level 106 mmol/L Carbon Dioxide Level 27 mmol/L Anion Gap 6.0 mmol/L Blood Urea Nitrogen 16 mg/dl Creatinine 0.98 mg/dl Est Creatinine Clear Calc Drug Dose 56.2 ml/min Estimated GFR () 82.9 Estimated GFR (Non- 71.5 BUN/Creatinine Ratio 15.9 Random Glucose 114 mg/dl Calcium Level 8.6 mg/dl Assessment and Plan Scrotal abscess. partly drained at [facility]. Now completely drained. Need to keep a wick in the cavity until is closes from the inside out. Will check daily.
--- NOTE | 2017-06-21 15:06 | Progress Note ---
Internal Med Progress Note Date of Service: Jun 21, 2017. Provider Documentation: SUBJECTIVE: The patient was seen and examined in presence of . Admitted with change in mental status and fever. Feels a lot better following admission. As per the the patient is doing a lot better. OBJECTIVE: Vital Signs-as noted below Exam: General-no apparent distress. Eyes-normal ENT-normal Neck-supple Lungs-decreased breath sounds both sides, minimal crackles at the base. Heart-S1-S2 regular, no murmur appreciated. Abdomen-slightly distended, soft, no masses, bowel sounds present Extremities-trace edema bilaterally Local examination of the genitalia-swelling of the penis and scrotum. Redness and minimal drainage from the undersurface of scrotum. Neuro-alert awake. Has severe dementia and parkinsonian feature. Lab data as noted below. ASSESSMENT & PLAN: SCROTAL ABSCESS No Sepsis on admission Clinical and CT :5 cm fluid collection inferior to the anal verge. This contains air bubbles and likely represents an abscess. This may be localized to the posterior scrotum. Clinical correlation in this regard is advocated Blood cultures obtained.Check wound culture. Received intravenous piperacillin/tazobactam in the ED which will be continued. Add IV clindamycin. Urology consulted-appreciate input Like to go for I and D this afternoon. ALTERED MENTAL STATUS Probable encephalopathy secondary to scrotal abscess. Reverted to baseline following use of antibiotics. CORONARY ARTERY DISEASE Continue metoprolol as hemodynamics allow. Hold aspirin for anticipated I&D; resume postop when able. Denies to have any chest pain shortness of breath or palpitation. HYPERTENSION Continue metoprolol as hemodynamics allow. Remains stable PARKINSON'S DISEASE Continue carbidopa/levodopa. Fall precautions. Pureed diet with aspiration precautions when able to resume PO intake postop. DEMENTIA Advanced dementia with superimposed delirium. Avoid anticholinergic medications and other meds with MUSEUM EDUCATOR side effects whenever possible. Back to his baseline as per the . COMPLEX RIGHT RENAL CYST Noted on CT. Conservative management anticipated in light of multiple comorbidities. EDEMA RIGHT LOWER EXTREMITY Check venous duplex to rule out DVT-no deep venous thrombosis noted. VTE PROPHYLAXIS Initial prophylaxis with SCDs if venous duplex right lower extremity negative for DVT. Prophylaxis with low-dose heparin or enoxaparin postoperatively. RESUSCITATION STATUS Discussed with who is the durable power of surface hydrologist. Code status is DNR. Temporary intubation for general anesthesia if necessary would be permissible. DISPOSITION Admit to Med-Surg Unit. Anticipated return to [facility] when medically stable. PT/OT evaluation before discharge . Vital Signs: Date Time Temp Pulse Resp B/P (MAP) Pulse Ox O2 Delivery O2 Flow Rate FiO2 06/21/17 12:16 36.3 60 18 134/82 (99) 100 Room Air 06/21/17 11:45 Room Air 06/21/17 09:16 97 Room Air 06/21/17 07:44 36.7 62 18 126/76 (93) 97 Room Air 06/21/17 00:00 95 Room Air 06/20/17 23:39 36.9 59 19 92/54 (67) 99 Room Air 06/20/17 19:18 95 Room Air 06/20/17 18:58 60 16 109/76 95 06/20/17 17:57 60 16 123/79 98 Room Air 06/20/17 16:44 60 16 120/75 97 Room Air 06/20/17 15:18 61 Lab Results: Results Past 24 Hours Test 06/20/17 15:15 06/21/17 06:54 Range/Units White Blood Count 10.41 8.77 4.8-10.8 K/uL Red Blood Count 4.18 4.47 4.7-6.1 M/uL Hemoglobin 13.0 13.5 14.0-18.0 g/dL Hematocrit 38.5 41.2 42-52 % Mean Corpuscular Volume 92.1 92.2 80-100 fL Mean Corpuscular Hemoglobin 31.1 30.2 25-34 pg Mean Corpuscular Hemoglobin Concent 33.8 32.8 32-36 g/dl Platelet Count 170 173 130-400 K/uL Mean Platelet Volume 9.6 9.6 7.4-10.4 fL Neutrophils (%) (Auto) 67.3 % Lymphocytes (%) (Auto) 16.3 % Monocytes (%) (Auto) 13.4 % Eosinophils (%) (Auto) 2.0 % Basophils (%) (Auto) 0.4 % Neutrophils # (Auto) 7.01 1.4-6.5 K/uL Lymphocytes # (Auto) 1.70 1.2-3.4 K/uL Monocytes # (Auto) 1.39 0.11-0.59 K/uL Eosinophils # (Auto) 0.21 0-0.5 K/uL Basophils # (Auto) 0.04 0-0.2 K/uL RDW Standard Deviation 47.5 47.3 36.4-46.3 fL RDW Coefficient of Variation 14.1 14.0 11.5-14.5 % Immature Granulocyte % (Auto) 0.6 % Immature Granulocyte # (Auto) 0.06 0.00-0.02 K/uL Prothrombin Time 11.6 9.0-12.0 SECONDS Prothromb Time International Ratio 1.1 0.9-1.1 Sodium Level 139 136-145 mmol/L Potassium Level 3.8 3.5-5.1 mmol/L Chloride Level 106 98-107 mmol/L Carbon Dioxide Level 27 21-32 mmol/L Anion Gap 6.0 3-11 mmol/L Blood Urea Nitrogen 16 7-18 mg/dl Creatinine 0.98 0.60-1.40 mg/dl Est Creatinine Clear Calc Drug Dose 56.2 ml/min Estimated GFR () 82.9 Estimated GFR (Non- 71.5 BUN/Creatinine Ratio 15.9 10-20 Random Glucose 114 70-99 mg/dl Calcium Level 8.6 8.5-10.1 mg/dl Microbiology Results 06/20/17 MRSA DNA Surveillance Screen - Final, Complete Specimen Negative for MRSA by DNA Probe 06/20/17 Gram Stain - Final, Resulted 06/20/17 Wound Culture - Preliminary, Resulted Gram Positive Cocci
[2017-06-21] MEDS: CARBIDOPA/LEVODOPA 10/100MG TAB PO SCH (20:26)
[2017-06-21] MEDS: METOPROLOL SUCC 25MG EXT REL TAB PO SCH (20:29)
[2017-06-22 00:10] VITALS: O2SAT 98
[2017-06-22] MEDS: CLINDAMYCIN IV 900 MG in DEXTROSE 5% 100ML 100 ML IV SCH ×3 (02:00→18:02)
[2017-06-22] MEDS: PIPERACILL/TAZOBAC IV 3.375 GM in DEXTROSE 5% 100ML 100 ML IV SCH ×3 (04:14→20:19)
[2017-06-22] MEDS: D5W AND LACTATED RINGERS 1,000 ML IV SCH ×3 (04:58→11:51)
[2017-06-22] MEDS: CARBIDOPA/LEVODOPA 25/100MG TAB PO SCH ×3 (07:11→18:04)
[2017-06-22 07:42] VITALS: BP 131/82; PULSE 60; TEMP 37; O2SAT 97
[2017-06-22 15:26] VITALS: BP 153/78; PULSE 60; TEMP 36.7; O2SAT 98
--- NOTE | 2017-06-22 17:19 | Progress Note ---
Subjective Date of Service: Jun 22, 2017. Subjective Pt evaluation today including: physical exam, lab review Voiding: incontinence Patient does not answer any questions, seems energetic but confused. Has a strong voice today. He says "Allelujah!" several times. Per his nurse he is eating better today. No technical problems with packing changes. He has most blood tinged but clear drainage. Is incontinent of urine. Review of Systems Constitutional: No fever, No chills patient cannot answer questions due to confusion Objective Vital Signs Date Time Temp Pulse Resp B/P (MAP) Pulse Ox O2 Delivery O2 Flow Rate FiO2 06/22/17 15:30 Room Air 06/22/17 15:26 36.7 60 19 153/78 (103) 98 Room Air 06/22/17 08:30 Room Air 06/22/17 07:42 37.0 60 20 131/82 (98) 97 Room Air 06/22/17 00:10 98 Room Air 06/21/17 23:31 36.8 60 20 108/60 (76) 97 Room Air 06/21/17 20:28 73 142/77 (98) Physical Exam General Appearance: WD/WN, no apparent distress, + obese Skin: + pertinent finding (The posterior scrotum has improved tremendously. The packing has clear red drainage, no odor no purulence. the surrounding skin is thickened but all skin edges are viable. no crepitance no erythema) Comments: uncirc phallus, no urethral discharge, clear drainage. Laboratory Results Last 24 Hours Test 06/22/17 09:05 Urine Color YELLOW Urine Appearance CLEAR Urine pH 7.5 Urine Specific [place] 1.006 Urine Protein NEG Urine Glucose (UA) NEG Urine Ketones NEG Urine Occult Blood NEG Urine Nitrite NEG Urine Bilirubin NEG Urine Urobilinogen NEG Urine Leukocyte Esterase LARGE Urine WBC (Auto) >30 /hpf Urine RBC (Auto) 0-4 /hpf Urine Hyaline Casts (Auto) 0 /lpf Urine Epithelial Cells (Auto) >30 /lpf Urine Bacteria (Auto) NEG Urine Renal Epithelial Cells /lpf Assessment and Plan Scrotal abscess. partly drained at detention. Now completely drained. Need to keep a wick in the cavity until is closes from the inside out. An impressive improvement in just a day after bedside drainage. expect the pocket to close over a week. see if detention thinks they can do a dressing change 2-3 times per day. Will check daily while in house.
[2017-06-22] MEDS ORDERED: LEVALBUTEROL/IPRATROPIUM NEB INH PRN (18:15)
--- NOTE | 2017-06-22 19:02 | DIAGNOSTIC IMAGING REPORT ---
CHEST ONE VIEW PORTABLE CLINICAL HISTORY: Wheezing. COMPARISON STUDY: Chest radiograph June 20, 2017. 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 There is pulmonary vascular congestion without overt pulmonary edema. There are are trace bilateral pleural effusions. Cardiomegaly is unchanged. IMPRESSION: 1. Pulmonary vascular congestion without overt pulmonary edema. 2. Suspected trace bilateral pleural effusions. Electronically signed by: Alejandro Marx M.D. 06/22/2017 7:01 PM Dictated Date/Time: 06/22/2017 6:59 PM
[2017-06-22] MEDS: IPRATROPIUM BROMIDE NEB SOLN 0.02% 2.5 ML VIAL INH PRN (19:03)
[2017-06-22] MEDS: LEVALBUTEROL 1.25MG/0.5ML NEB INH PRN (19:03)
[2017-06-22 19:04] VITALS: PULSE 85; O2SAT 96
[2017-06-22] MEDS ORDERED: FUROSEMIDE INJ 20 MG in SYRINGE 0 ML IV ONE (19:15)
--- NOTE | 2017-06-22 19:37 | Progress Note ---
Internal Med Progress Note Date of Service: Jun 22, 2017. Provider Documentation: SUBJECTIVE: confused has dementia afebrile not oriented hemodynamics stable OBJECTIVE: Vital Signs-as noted below Exam: General-alert and awake. confused ENT-Normal hearing Neck-no neck masses Lungs-cta b/l no wheezing mild bibasilar crackles Heart-S1 and S2 heard regular rate and rhythm no murmurs Abdomen-Soft bowel sounds present non tender no distension Extremities-no edema no erythema Neuro-alert and awake moves extremities Lab data as noted below. ASSESSMENT & PLAN: SCROTAL ABSCESS No Sepsis on admission s/p I and D by urology on iv zosyn and clindamycin await cx ALTERED MENTAL STATUS Probable encephalopathy secondary to scrotal abscess. Reverted to baseline following use of antibiotics. hx of dementia monitor for delirium CORONARY ARTERY DISEASE on metoprolol and aspirin will monitor sob/wheezing? fluids stopped cxr mild congestion will give a dose of Lasix. HYPERTENSION on Lopressor Remains stable PARKINSON'S DISEASE on carbidopa/levodopa. Fall precautions. Pureed diet with aspiration precautions when able to resume PO intake postop. DEMENTIA Advanced dementia with superimposed delirium. Avoid anticholinergic medications and other meds with DOUGH MIXER side effects whenever possible. will monitor COMPLEX RIGHT RENAL CYST Noted on CT. Conservative management anticipated in light of multiple comorbidities. EDEMA RIGHT LOWER EXTREMITY -no deep venous thrombosis noted on doppler VTE PROPHYLAXIS scds hep sub q RESUSCITATION STATUS DNR as per admission DISPOSITION Monitor in Med-Surg Unit. Anticipated return [facility] when medically stable. PT/OT evaluation before discharge . Vital Signs: Date Time Temp Pulse Resp B/P (MAP) Pulse Ox O2 Delivery O2 Flow Rate FiO2 06/22/17 19:04 85 22 96 Room Air 06/22/17 15:30 Room Air 06/22/17 15:26 36.7 60 19 153/78 (103) 98 Room Air 06/22/17 08:30 Room Air 06/22/17 07:42 37.0 60 20 131/82 (98) 97 Room Air 06/22/17 00:10 98 Room Air 06/21/17 23:31 36.8 60 20 108/60 (76) 97 Room Air 06/21/17 20:28 73 142/77 (98) Lab Results: Results Past 24 Hours Test 06/22/17 09:05 06/22/17 18:40 Range/Units Urine Color YELLOW Urine Appearance CLEAR CLEAR Urine pH 7.5 4.5-7.5 Urine Specific [place] 1.006 1.000-1.030 Urine Protein NEG NEG Urine Glucose (UA) NEG NEG Urine Ketones NEG NEG Urine Occult Blood NEG NEG Urine Nitrite NEG NEG Urine Bilirubin NEG NEG Urine Urobilinogen NEG NEG Urine Leukocyte Esterase LARGE NEG Urine WBC (Auto) >30 0-5 /hpf Urine RBC (Auto) 0-4 0-4 /hpf Urine Hyaline Casts (Auto) 0 0-5 /lpf Urine Epithelial Cells (Auto) >30 0-5 /lpf Urine Bacteria (Auto) NEG NEG Urine Renal Epithelial Cells 0-5 /lpf Microbiology Results 06/22/17 Urine Culture, Received Pending 06/22/17 Urine Culture, Received Pending
[2017-06-22] MEDS: HEPARIN SOD 5000 UNIT/0.5 ML CARP SQ SCH (20:19)
[2017-06-22] MEDS: CARBIDOPA/LEVODOPA 10/100MG TAB PO SCH (20:19)
[2017-06-22 20:21] VITALS: BP 122/75; PULSE 60
[2017-06-22] MEDS: METOPROLOL SUCC 25MG EXT REL TAB PO SCH (20:22)
[2017-06-22 20:36] LABS: INFLUENZA A PCR Neg for Influ A (NEG); INFLUENZA B PCR Neg for Influ B (NEG)
[2017-06-22 23:00] VITALS: BP 137/77; PULSE 60; TEMP 37; O2SAT 96
[2017-06-23] MEDS: CLINDAMYCIN IV 900 MG in DEXTROSE 5% 100ML 100 ML IV SCH (01:33)
[2017-06-23] MEDS: PIPERACILL/TAZOBAC IV 3.375 GM in DEXTROSE 5% 100ML 100 ML IV SCH ×3 (03:53→21:31)
[2017-06-23 05:08] VITALS: PULSE 61; O2SAT 93
[2017-06-23] MEDS: IPRATROPIUM BROMIDE NEB SOLN 0.02% 2.5 ML VIAL INH PRN (05:08)
[2017-06-23] MEDS: LEVALBUTEROL 1.25MG/0.5ML NEB INH PRN (05:08)
[2017-06-23] MEDS: CARBIDOPA/LEVODOPA 25/100MG TAB PO SCH ×3 (06:11→17:33)
[2017-06-23] MEDS ORDERED: VANCOMYCIN CONSULT ACTIVE PRN (07:30)
[2017-06-23 07:49] VITALS: BP 100/62; PULSE 61; TEMP 36.7; O2SAT 93
[2017-06-23 07:51] VITALS: O2SAT 93
[2017-06-23 07:54] LABS: BASO % 0.8 %; BASO ABS # 0.04 K/uL (0-0.2); EOS % 2.9 %; EOS ABS # 0.14 K/uL (0-0.5); HEMATOCRIT 36.5 % (42-52); HEMOGLOBIN 12.6 g/dL (14.0-18.0); IG# 0.06 K/uL (0.00-0.02); LYMPH ABS # 0.62 K/uL (1.2-3.4); MEAN CELL VOLUME 89.7 fL (80-100); MEAN CORPUSCULAR HGB CONC 34.5 g/dl (32-36); MEAN PLATELET VOLUME 8.9 fL (7.4-10.4); MONO ABS # 0.62 K/uL (0.11-0.59); PLATELET COUNT 182 K/uL (130-400); RED CELL DISTRIBUTION WIDTH SD 46.2 fL (36.4-46.3); WHITE BLOOD COUNT 4.78 K/uL (4.8-10.8)
[2017-06-23 08:19] LABS: CALCIUM 8.5 mg/dl (8.5-10.1); CREATININE 1.15 mg/dl (0.60-1.40); POTASSIUM 3.2 mmol/L (3.5-5.1)
[2017-06-23] MEDS: HEPARIN SOD 5000 UNIT/0.5 ML CARP SQ SCH ×2 (08:22→21:30)
[2017-06-23] MEDS ORDERED: VANCOMYCIN IV 1,750 MG in SODIUM CHLORIDE 0.9% 500ML 500 ML IV ONE (08:45)
--- NOTE | 2017-06-23 08:57 | Pharmacy Progress Note ---
Pharmacy Abx Initial Consult Date of Service Jun 23, 2017. Pharmacy Dosing Scope Date of Consult: 06/23/17 Consultation requested by: Dr. Quiñonez Pharmacy is consulted to initiate Vancomycin IV dosing therapy, order appropriate labs and adjust drug dose/frequency. Pt also receiving Zosyn per pharmacy consult since 06/20/17. Subjective The patient is a 81 year old male admitted on Jun 20, 2017 at 18:08. Objective Height (Feet): 5 Height (Inches): 10.00 Weight (Kilograms): 68.400 Vital Signs (Past 12Hrs) Vital Signs Past 12 Hours Date Time Temp Pulse Resp B/P (MAP) Pulse Ox O2 Delivery O2 Flow Rate FiO2 06/23/17 07:51 93 Room Air 06/23/17 07:49 36.7 61 18 100/62 (75) 93 Room Air 06/23/17 05:08 61 22 93 Room Air 06/23/17 00:05 Room Air 06/22/17 23:00 37.0 60 20 137/77 (97) 96 Room Air Lab Results (24Hrs) Laboratory Tests (24 Hours) Test 06/23/17 07:39 White Blood Count 4.78 K/uL (4.8-10.8) L Red Blood Count 4.07 M/uL (4.7-6.1) L Hemoglobin 12.6 g/dL (14.0-18.0) L Hematocrit 36.5 % (42-52) L Mean Corpuscular Volume 89.7 fL (80-100) Mean Corpuscular Hemoglobin 31.0 pg (25-34) Mean Corpuscular Hemoglobin Concent 34.5 g/dl (32-36) Platelet Count 182 K/uL (130-400) Mean Platelet Volume 8.9 fL (7.4-10.4) Neutrophils (%) (Auto) 69.0 % Lymphocytes (%) (Auto) 13.0 % Monocytes (%) (Auto) 13.0 % Eosinophils (%) (Auto) 2.9 % Basophils (%) (Auto) 0.8 % Neutrophils # (Auto) 3.30 K/uL (1.4-6.5) Lymphocytes # (Auto) 0.62 K/uL (1.2-3.4) L Monocytes # (Auto) 0.62 K/uL (0.11-0.59) H Eosinophils # (Auto) 0.14 K/uL (0-0.5) Basophils # (Auto) 0.04 K/uL (0-0.2) Micro Results Date/Time Source Procedure Growth Status 06/20/17 14:40 Blood Blood Culture - Preliminary NO GROWTH TO DATE. Resulted 06/20/17 14:36 Blood Blood Culture - Preliminary NO GROWTH TO DATE. Resulted 06/20/17 21:23 Nasal MRSA DNA Surveillance Screen - Final Specimen Negative for MRSA by DNA Probe Complete 06/22/17 13:27 Urine , Clean Catch Urine Culture Pending Received 06/22/17 09:05 Urine , Clean Catch Urine Culture Pending Received 06/20/17 21:24 Skin Scrotum Gram Stain - Final Complete 06/20/17 21:24 Wound Culture - Final Staph. Aureus Mrsa Pseudomonas Aeruginosa Staph. Aureus Mrsa#2 Complete Risk Factors for Resistance * Resident in a [facility] or extended-care facility * Immunocompromised? Hx prostate cancer treated with radiation Assessment & Plan Assessment 81 year old male with scrotal abscess. Cultures/sensitivities results show MRSA & pseudomonas sensitive to vancomycin and zosyn respectively. OK to stop clindamycin per discussion with hospitalist since patient has received 48hrs + of clinda and vancomycin initiated today. Plan Vancomycin + Zosyn for treatment of SST. Stop clinda. Vancomycin IV * Loading dose: 1,750 mg (25 mg/kg) * Maintenance dose: 1,00 mg IV (15 mg/kg) every 18 hours * Goal trough level for SST : 10 to 20 mcg/mL --> will aim for trough of ~15-20 mcg/ml since Vanco MARIO is 2 * Trough level ordered for 06/25/17 @ 1430 (prior to 4th dose) Piperacillin/tazobactam * 4.5 g bolus administered over 30 minutes in ED, then 3.375 g IV extended infusion every 8 hours for CrCl greater than 20 mL/min Pharmacy will continue to follow and will adjust dose/frequency as necessary. Thank you.
--- NOTE | 2017-06-23 11:06 | Progress Note ---
Progress Note Date of Service Jun 23, 2017. Progress Note ID Consult Dictated #[id number] A/P: 1. Scrotal Abscess - MRSA, pseudomonas -Can continue with vanco and zoysn while in hospital -Would give 14 days total -Can transition to po cipro/clinda upon d/c to complete course -Continue local wound care -Thank you
--- NOTE | 2017-06-23 11:21 | INFECT. DISEASE CONSULTATION ---
DATE OF CONSULTATION: 06/23/2017 HISTORY OF PRESENT ILLNESS: This is an 81-year-old gentleman who was admitted from [facility]. He was found at that time to have scrotal cellulitis and abscess for which he underwent an I&D. He continued to have worsening symptoms and was subsequently admitted to the hospital. He does have underlying disease of prostate cancer, dementia and Parkinson's disease, and I am unable to obtain any review of systems from the patient. He has been afebrile since admission. He was placed empirically on vancomycin and Zosyn and he remains on these antibiotics. In the ER, a urinalysis was done which showed large leukocyte esterase and greater than 30 WBCs but no bacteria. Blood cultures were obtained in the ER and are negative to date. A wound culture was also obtained on 06/20/2017 in the ER and grew MRSA which was resistant to doxycycline and also grew pseudomonas which was intermediate to gentamicin only and otherwise sensitive. A CT of the abdomen and pelvis was also done and was unremarkable. He is being followed by urology here as well. He again does not offer any review of systems throughout my examination. MEDICAL HISTORY: Significant for coronary artery disease, dementia, GERD, prostate cancer, skin cancer, hypertension, Parkinson's disease and history of paroxysmal AFib. SURGICAL HISTORY: Significant for AICD and recent scrotal I&D. FAMILY HISTORY: Noncontributory. SOCIAL HISTORY: Negative for tobacco use, alcohol use or drug use. He currently lives at [facility]. ALLERGIES: He has no known drug allergies. MEDICATIONS: Include vancomycin, subcu heparin, Atrovent, Xopenex, Sinemet, Toprol-XL, Zosyn, Dilaudid and Tylenol. PHYSICAL EXAMINATION: VITAL SIGNS: He is afebrile, pulse 61, respiratory rate 18, blood pressure 100/62. His oxygen saturations are 93-96% on room air. GENERAL: He is awake and appears comfortable. He is stating "I am freezing" throughout the exam. HEENT: Mucous membranes are dry. HEART: Without murmur. LUNGS: Decreased bilaterally. ABDOMEN: Nondistended. There is no surrounding scrotal cellulitis or induration. There is no edema. LABORATORY STUDIES: CBC today reveals white blood cell count of 4.7, hemoglobin 12.6, platelets are 182. Chemistry panel: Sodium 140, potassium 3.2, chloride 106, bicarbonate 28, BUN 11, creatinine 1.1, glucose 103. Urinalysis is as above. A flu swab was negative yesterday. Again, culture from 06/20/2017 grew MRSA and pseudomonas. Blood cultures from 06/20/2017 are negative. IMAGING: As above. ASSESSMENT AND PLAN: Scrotal cellulitis with abscess, status post I&D. He can be maintained on his current antibiotics for now. If he is to be discharged prior to discontinuation of antibiotics, my recommendations would be oral Cipro as well as oral clindamycin to complete a 14-day course. He will continue to undergo urology evaluation and dressing changes. Thank you for this consultation.
--- NOTE | 2017-06-23 15:28 | Progress Note ---
Internal Med Progress Note Date of Service: Jun 23, 2017. Provider Documentation: SUBJECTIVE: seems comfortable has severe dementia feeding him says he at baseline regarding mental status afebrile OBJECTIVE: Vital Signs-as noted below Exam: General-alert and awake. confused ENT-Normal hearing Neck-no neck masses Lungs-cta b/l no wheezing mild bibasilar crackles Heart-S1 and S2 heard regular rate and rhythm no murmurs Abdomen-Soft bowel sounds present non tender no distension Extremities-no edema no erythema Neuro-alert and awake moves extremities Lab data as noted below. ASSESSMENT & PLAN: SCROTAL ABSCESS No Sepsis on admission s/p I and D by urology on iv zosyn and clindamycin cx growing pseudomonas and mrsa currently on iv Zosyn and iv vanco ID recommends 14 days total abx and can d/c on cipro and clindamycin po ALTERED MENTAL STATUS Probable encephalopathy secondary to scrotal abscess. seems at baseline currently. hx of dementia monitor for delirium CORONARY ARTERY DISEASE on metoprolol and aspirin stable will monitor sob/wheezing? fluids stopped cxr mild congestion will give a dose of Lasix. stable HYPERTENSION on Lopressor Remains stable PARKINSON'S DISEASE on carbidopa/levodopa. Fall precautions. Pureed diet with aspiration precautions when able to resume PO intake postop. DEMENTIA Advanced dementia with superimposed delirium. To Avoid anticholinergic medications and other meds with DIRECTOR OF MATH side effects whenever possible. will monitor COMPLEX RIGHT RENAL CYST Noted on CT. Conservative management anticipated in light of multiple comorbidities. EDEMA RIGHT LOWER EXTREMITY no deep venous thrombosis noted on Doppler VTE PROPHYLAXIS scds hep sub q RESUSCITATION STATUS DNR as per admission DISPOSITION Monitor in Med-Surg Unit. Anticipated return to [facility] when medically stable. PT/OT evaluation before discharge .possible d/c in 1-2 days Vital Signs: Date Time Temp Pulse Resp B/P (MAP) Pulse Ox O2 Delivery O2 Flow Rate FiO2 06/23/17 11:10 Room Air 06/23/17 07:51 93 Room Air 06/23/17 07:49 36.7 61 18 100/62 (75) 93 Room Air 06/23/17 05:08 61 22 93 Room Air 06/23/17 00:05 Room Air 06/22/17 23:00 37.0 60 20 137/77 (97) 96 Room Air 06/22/17 20:21 60 122/75 (91) 06/22/17 19:04 85 22 96 Room Air 06/22/17 15:30 Room Air Lab Results: Results Past 24 Hours Test 06/22/17 19:51 06/23/17 07:39 Range/Units Influenza Type A (RT-PCR) Neg for Influ A NEG Influenza Type B (RT-PCR) Neg for Influ B NEG White Blood Count 4.78 4.8-10.8 K/uL Red Blood Count 4.07 4.7-6.1 M/uL Hemoglobin 12.6 14.0-18.0 g/dL Hematocrit 36.5 42-52 % Mean Corpuscular Volume 89.7 80-100 fL Mean Corpuscular Hemoglobin 31.0 25-34 pg Mean Corpuscular Hemoglobin Concent 34.5 32-36 g/dl Platelet Count 182 130-400 K/uL Mean Platelet Volume 8.9 7.4-10.4 fL Neutrophils (%) (Auto) 69.0 % Lymphocytes (%) (Auto) 13.0 % Monocytes (%) (Auto) 13.0 % Eosinophils (%) (Auto) 2.9 % Basophils (%) (Auto) 0.8 % Neutrophils # (Auto) 3.30 1.4-6.5 K/uL Lymphocytes # (Auto) 0.62 1.2-3.4 K/uL Monocytes # (Auto) 0.62 0.11-0.59 K/uL Eosinophils # (Auto) 0.14 0-0.5 K/uL Basophils # (Auto) 0.04 0-0.2 K/uL RDW Standard Deviation 46.2 36.4-46.3 fL RDW Coefficient of Variation 14.0 11.5-14.5 % Immature Granulocyte % (Auto) 1.3 % Immature Granulocyte # (Auto) 0.06 0.00-0.02 K/uL Sodium Level 140 136-145 mmol/L Potassium Level 3.2 3.5-5.1 mmol/L Chloride Level 106 98-107 mmol/L Carbon Dioxide Level 28 21-32 mmol/L Anion Gap 6.0 3-11 mmol/L Blood Urea Nitrogen 11 7-18 mg/dl Creatinine 1.15 0.60-1.40 mg/dl Est Creatinine Clear Calc Drug Dose 47.9 ml/min Estimated GFR () 68.3 Estimated GFR (Non- 58.9 BUN/Creatinine Ratio 9.9 10-20 Random Glucose 103 70-99 mg/dl Calcium Level 8.5 8.5-10.1 mg/dl Magnesium Level 2.1 1.8-2.4 mg/dl
[2017-06-23 15:43] VITALS: BP 109/58; PULSE 61; TEMP 36.2; O2SAT 94
[2017-06-23 16:30] VITALS: O2SAT 94
--- NOTE | 2017-06-23 17:37 | Progress Note ---
Subjective Date of Service: Jun 23, 2017. Subjective Pt evaluation today including: physical exam, chart review Voiding: incontinence patient lying quietly in bed. Nurse reports no problems with dressing changes. last change 3 hours ago. No fevers. Review of Systems patient is too confused to answer questions. Objective Vital Signs Date Time Temp Pulse Resp B/P (MAP) Pulse Ox O2 Delivery O2 Flow Rate FiO2 06/23/17 15:43 36.2 61 18 109/58 (75) 94 Room Air 06/23/17 11:10 Room Air 06/23/17 07:51 93 Room Air 06/23/17 07:49 36.7 61 18 100/62 (75) 93 Room Air 06/23/17 05:08 61 22 93 Room Air 06/23/17 00:05 Room Air 06/22/17 23:00 37.0 60 20 137/77 (97) 96 Room Air 06/22/17 20:21 60 122/75 (91) 06/22/17 19:04 85 22 96 Room Air Physical Exam General Appearance: WD/WN, no apparent distress Comments: I examined scrotum, no crepitance, moderate midline posterior scrotal induration , no fluctuance, no drainage, packing fell out and is light pink tinged, no purulence. I repacked with dry packing 2 inches. cavity remains open and clean. Patient with minor tenderness on exam. No sign of urine dermatitis or maceration at this time. Laboratory Results Last 24 Hours Test 06/22/17 19:51 06/23/17 07:39 Influenza Type A (RT-PCR) Neg for Influ A Influenza Type B (RT-PCR) Neg for Influ B White Blood Count 4.78 K/uL Red Blood Count 4.07 M/uL Hemoglobin 12.6 g/dL Hematocrit 36.5 % Mean Corpuscular Volume 89.7 fL Mean Corpuscular Hemoglobin 31.0 pg Mean Corpuscular Hemoglobin Concent 34.5 g/dl Platelet Count 182 K/uL Mean Platelet Volume 8.9 fL Neutrophils (%) (Auto) 69.0 % Lymphocytes (%) (Auto) 13.0 % Monocytes (%) (Auto) 13.0 % Eosinophils (%) (Auto) 2.9 % Basophils (%) (Auto) 0.8 % Neutrophils # (Auto) 3.30 K/uL Lymphocytes # (Auto) 0.62 K/uL Monocytes # (Auto) 0.62 K/uL Eosinophils # (Auto) 0.14 K/uL Basophils # (Auto) 0.04 K/uL RDW Standard Deviation 46.2 fL RDW Coefficient of Variation 14.0 % Immature Granulocyte % (Auto) 1.3 % Immature Granulocyte # (Auto) 0.06 K/uL Sodium Level 140 mmol/L Potassium Level 3.2 mmol/L Chloride Level 106 mmol/L Carbon Dioxide Level 28 mmol/L Anion Gap 6.0 mmol/L Blood Urea Nitrogen 11 mg/dl Creatinine 1.15 mg/dl Est Creatinine Clear Calc Drug Dose 47.9 ml/min Estimated GFR () 68.3 Estimated GFR (Non- 58.9 BUN/Creatinine Ratio 9.9 Random Glucose 103 mg/dl Calcium Level 8.5 mg/dl Magnesium Level 2.1 mg/dl Assessment and Plan [facility]al [facility] Now completely drained. Need to keep a wick in the cavity until is closes from the inside out. An impressive improvement in just a day after bedside drainage. expect the pocket to close over a week. see if jail thinks they can do a dressing change 2-3 times per day. Will check daily while in house. I do not suggest a tapia to manage his incontinence I think he is high risk to pull it out and the wound on the posterior scrotum will not be harmed by some urine.
[2017-06-23] MEDS: CARBIDOPA/LEVODOPA 10/100MG TAB PO SCH (21:30)
[2017-06-23] MEDS: METOPROLOL SUCC 25MG EXT REL TAB PO SCH (21:30)
[2017-06-23 23:43] VITALS: BP 116/66; PULSE 60; TEMP 36.9; O2SAT 95
[2017-06-24] MEDS: VANCOMYCIN IV 1,000 MG in SODIUM CHLORIDE 0.9% 250ML 250 ML IV SCH ×2 (02:56→20:35)
[2017-06-24] MEDS: PIPERACILL/TAZOBAC IV 3.375 GM in DEXTROSE 5% 100ML 100 ML IV SCH ×3 (04:50→20:35)
[2017-06-24] MEDS: CARBIDOPA/LEVODOPA 25/100MG TAB PO SCH ×3 (06:39→18:46)
[2017-06-24 07:04] VITALS: BP 118/70; PULSE 60; TEMP 36.5; O2SAT 93
[2017-06-24 07:12] VITALS: PULSE 67; O2SAT 94
[2017-06-24] MEDS: LEVALBUTEROL 1.25MG/0.5ML NEB INH PRN (07:12)
[2017-06-24] MEDS: IPRATROPIUM BROMIDE NEB SOLN 0.02% 2.5 ML VIAL INH PRN (07:12)
[2017-06-24] MEDS: HEPARIN SOD 5000 UNIT/0.5 ML CARP SQ SCH ×2 (08:45→20:53)
[2017-06-24 10:45] LABS: CREATININE 1.15 mg/dl (0.60-1.40)
[2017-06-24 15:18] VITALS: BP 110/64; PULSE 60; TEMP 37.1; O2SAT 95
[2017-06-24 16:00] VITALS: O2SAT 95
--- NOTE | 2017-06-24 18:40 | Progress Note ---
Internal Med Progress Note Date of Service: Jun 24, 2017. Provider Documentation: SUBJECTIVE: seems comfortable has severe dementia says he is ok afebrile OBJECTIVE: Vital Signs-as noted below Exam: General-alert and awake. confused ENT-Normal hearing Neck-no neck masses Lungs-cta b/l no wheezing mild bibasilar crackles Heart-S1 and S2 heard regular rate and rhythm no murmurs Abdomen-Soft bowel sounds present non tender no distension Extremities-no edema no erythema Neuro-alert and awake moves extremities Lab data as noted below. ASSESSMENT & PLAN: SCROTAL ABSCESS No Sepsis on admission s/p I and D by urology on iv zosyn and clindamycin cx growing pseudomonas and mrsa currently on iv Zosyn and iv vanco ID recommends 14 days total abx and can d/c on cipro and clindamycin po stable ALTERED MENTAL STATUS Probable encephalopathy secondary to scrotal abscess. seems at baseline currently. hx of dementia monitor for delirium stable CORONARY ARTERY DISEASE on metoprolol and aspirin stable will monitor sob/wheezing? fluids stopped cxr mild congestion will give a dose of Lasix. stable HYPERTENSION on Lopressor Remains stable PARKINSON'S DISEASE on carbidopa/levodopa. Fall precautions. Pureed diet with aspiration precautions when able to resume PO intake postop. DEMENTIA Advanced dementia with superimposed delirium. To Avoid anticholinergic medications and other meds with INTERNATIONAL LOGISTICS MANAGER side effects whenever possible. will monitor COMPLEX RIGHT RENAL CYST Noted on CT. Conservative management anticipated in light of multiple comorbidities. EDEMA RIGHT LOWER EXTREMITY no deep venous thrombosis noted on Doppler VTE PROPHYLAXIS scds hep sub q RESUSCITATION STATUS DNR as per admission DISPOSITION Monitor in Med-Surg Unit. Anticipated return to [facility] when medically stable. PT/OT evaluation before discharge .possible d/c in am Vital Signs: Date Time Temp Pulse Resp B/P (MAP) Pulse Ox O2 Delivery O2 Flow Rate FiO2 06/24/17 15:18 37.1 60 18 110/64 (79) 95 Room Air 06/24/17 10:20 Room Air 06/24/17 07:12 67 18 94 Room Air 06/24/17 07:04 36.5 60 18 118/70 (86) 93 Room Air 06/23/17 23:55 Room Air 06/23/17 23:43 36.9 60 20 116/66 (83) 95 Room Air Lab Results: Results Past 24 Hours Test 06/24/17 09:39 Range/Units Creatinine 1.15 0.60-1.40 mg/dl Est Creatinine Clear Calc Drug Dose 47.9 ml/min Estimated GFR () 68.3 Estimated GFR (Non- 58.9
[2017-06-24] MEDS: CARBIDOPA/LEVODOPA 10/100MG TAB PO SCH (20:37)
[2017-06-24] MEDS: METOPROLOL SUCC 25MG EXT REL TAB PO SCH (20:38)
[2017-06-24 20:40] VITALS: BP 124/82; PULSE 60
[2017-06-24 23:51] VITALS: BP 132/73; PULSE 79; TEMP 36.3; O2SAT 94
[2017-06-25] MEDS: PIPERACILL/TAZOBAC IV 3.375 GM in DEXTROSE 5% 100ML 100 ML IV SCH ×2 (05:02→12:47)
[2017-06-25] MEDS: CARBIDOPA/LEVODOPA 25/100MG TAB PO SCH ×2 (07:14→12:47)
[2017-06-25 07:26] VITALS: BP 136/81; PULSE 59; TEMP 36.8; O2SAT 94
[2017-06-25] MEDS: HEPARIN SOD 5000 UNIT/0.5 ML CARP SQ SCH (08:52)
[2017-06-25 09:28] LABS: BASO ABS # 0.05 K/uL (0-0.2); EOS % 3.2 %; EOS ABS # 0.16 K/uL (0-0.5); HEMATOCRIT 42.1 % (42-52); HEMOGLOBIN 14.5 g/dL (14.0-18.0); IG# 0.09 K/uL (0.00-0.02); LYMPH % 15.3 %; LYMPH ABS # 0.77 K/uL (1.2-3.4); MEAN CELL VOLUME 90.1 fL (80-100); MEAN CORPUSCULAR HGB CONC 34.4 g/dl (32-36); MONO % 14.5 %; MONO ABS # 0.73 K/uL (0.11-0.59); NEUT % 64.2 %; NEUT ABS # 3.23 K/uL (1.4-6.5); PLATELET COUNT 201 K/uL (130-400); RED CELL DISTRIBUTION WIDTH CV 14.3 % (11.5-14.5); RED CELL DISTRIBUTION WIDTH SD 47.1 fL (36.4-46.3); WHITE BLOOD COUNT 5.03 K/uL (4.8-10.8)
[2017-06-25 10:17] LABS: CALCIUM 9.3 mg/dl (8.5-10.1); CREATININE 1.15 mg/dl (0.60-1.40); POTASSIUM 3.6 mmol/L (3.5-5.1)
[2017-06-25 13:44] VITALS: BP 136/81; PULSE 59; TEMP 36.8; O2SAT 94
[2017-06-25] MEDS ORDERED: CIPR-255 PO (14:24)
[2017-06-25] MEDS ORDERED: CLIN300C10 PO (14:24)
[2017-06-25] MEDS ORDERED: LCTX PO (14:24)
--- NOTE | 2017-06-25 14:26 | Discharge Instructions ---
Discharge Instructions Date of Service Jun 25, 2017. Admission Reason for Admission: Scrotal Abscess Discharge Discharge Diagnosis / Problem: scrotal abscess Discharge Goals Goal(s): Decrease discomfort, Improve function Activity Recommendations Activity Level: Up Ad Cristal Therapies: Physical Therapy, Occupational Therapy . Additional Information Patient informed of condition: Yes (has severe dementia) Advance Directives: Yes DNR: Yes Level of Care: Skilled Communicable Disease: No Prognosis: Stable Pablo Catheter: No Instructions / Follow-Up Instructions / Follow-Up FOLLOWUP WITH FAMILY DOCTOR IN ONE WEEK FOLLOWUP WITH UROLOGY IN 2-3 WEEKS PLEASE DO DRESSING 2-3 TIMES DAILY FOR SCROTA ABSCESS I AND D REGION Current Hospital Diet Patient's current hospital diet: Regular Diet Discharge Diet Recommended Diet: Regular Diet Diet Texture: Pureed (blended smooth) Pending Studies Studies pending at discharge: no Physician Orders On Transfer Special Precautions: FALL AND ASPIRATION PRECAUTIONS Vital Signs: EVERY 8HRS Additional Orders: PLEASE DO DRESSING 2-3 TIMES DAILY FOR SCROTA ABSCESS I AND D REGION Medical Emergencies . Who to Call and When: Medical Emergencies: If at any time you feel your situation is an emergency, please call 911 immediately. . Non-Emergent Contact Non-Emergency issues call your: Primary Care Provider . . "Provider Documentation" section prepared by Teja Quiñonez. . Core Measure Problem Core Measures: None
[2017-06-25] MEDS ORDERED: VANCOMYCIN TROUGH ONE (14:30)
--- NOTE | 2017-06-25 14:30 | Progress Note ---
Internal Med Progress Note Date of Service: Jun 25, 2017. Provider Documentation: SUBJECTIVE: Resting comfortably has severe dementia when said he is going back- he says he wants to go back OBJECTIVE: Vital Signs-as noted below Exam: General-alert and awake. confused ENT-Normal hearing Neck-no neck masses Lungs-cta b/l no wheezing no crackles Heart-S1 and S2 heard regular rate and rhythm no murmurs Abdomen-Soft bowel sounds present non tender no distension Extremities-no edema no erythema Neuro-alert and awake moves extremities Lab data as noted below. ASSESSMENT & PLAN: SCROTAL ABSCESS No Sepsis on admission s/p I and D by urology on iv zosyn and clindamycin cx growing pseudomonas and mrsa currently on iv Zosyn and iv vanco ID recommends 14 days total abx and can d/c on cipro and clindamycin po d/c today f/u with pcp and urology ALTERED MENTAL STATUS Probable encephalopathy secondary to scrotal abscess. seems at baseline currently. hx of dementia monitor for delirium stable CORONARY ARTERY DISEASE on metoprolol and aspirin stable will monitor sob/wheezing? fluids stopped cxr mild congestion will give a dose of Lasix. stable HYPERTENSION on Lopressor Remains stable PARKINSON'S DISEASE on carbidopa/levodopa. Fall precautions. Pureed diet with aspiration precautions when able to resume PO intake postop. DEMENTIA Advanced dementia with superimposed delirium. To Avoid anticholinergic medications and other meds with CONSTRUCTION COORDINATOR side effects whenever possible. will monitor COMPLEX RIGHT RENAL CYST Noted on CT. Conservative management anticipated in light of multiple comorbidities. EDEMA RIGHT LOWER EXTREMITY no deep venous thrombosis noted on Doppler VTE PROPHYLAXIS scds hep sub q RESUSCITATION STATUS DNR as per admission DISPOSITION discharge to [facility] today Vital Signs: Date Time Temp Pulse Resp B/P (MAP) Pulse Ox O2 Delivery O2 Flow Rate FiO2 06/25/17 13:44 36.8 59 18 94 Room Air 06/25/17 08:00 Room Air 06/25/17 07:26 36.8 59 18 136/81 (99) 94 Room Air 06/25/17 00:55 Room Air 06/24/17 23:51 36.3 79 20 132/73 (92) 94 Room Air 06/24/17 20:40 60 124/82 (96) 06/24/17 16:00 95 Room Air 06/24/17 15:18 37.1 60 18 110/64 (79) 95 Room Air Lab Results: Results Past 24 Hours Test 06/25/17 09:13 06/25/17 14:18 Range/Units White Blood Count 5.03 4.8-10.8 K/uL Red Blood Count 4.67 4.7-6.1 M/uL Hemoglobin 14.5 14.0-18.0 g/dL Hematocrit 42.1 42-52 % Mean Corpuscular Volume 90.1 80-100 fL Mean Corpuscular Hemoglobin 31.0 25-34 pg Mean Corpuscular Hemoglobin Concent 34.4 32-36 g/dl Platelet Count 201 130-400 K/uL Mean Platelet Volume 9.0 7.4-10.4 fL Neutrophils (%) (Auto) 64.2 % Lymphocytes (%) (Auto) 15.3 % Monocytes (%) (Auto) 14.5 % Eosinophils (%) (Auto) 3.2 % Basophils (%) (Auto) 1.0 % Neutrophils # (Auto) 3.23 1.4-6.5 K/uL Lymphocytes # (Auto) 0.77 1.2-3.4 K/uL Monocytes # (Auto) 0.73 0.11-0.59 K/uL Eosinophils # (Auto) 0.16 0-0.5 K/uL Basophils # (Auto) 0.05 0-0.2 K/uL RDW Standard Deviation 47.1 36.4-46.3 fL RDW Coefficient of Variation 14.3 11.5-14.5 % Immature Granulocyte % (Auto) 1.8 % Immature Granulocyte # (Auto) 0.09 0.00-0.02 K/uL Sodium Level 139 136-145 mmol/L Potassium Level 3.6 3.5-5.1 mmol/L Chloride Level 107 98-107 mmol/L Carbon Dioxide Level 24 21-32 mmol/L Anion Gap 8.0 3-11 mmol/L Blood Urea Nitrogen 11 7-18 mg/dl Creatinine 1.15 0.60-1.40 mg/dl Est Creatinine Clear Calc Drug Dose 47.9 ml/min Estimated GFR () 68.3 Estimated GFR (Non- 58.9 BUN/Creatinine Ratio 9.6 10-20 Random Glucose 110 70-99 mg/dl Calcium Level 9.3 8.5-10.1 mg/dl Magnesium Level 2.3 1.8-2.4 mg/dl Microbiology Results 06/25/17 C.difficile Toxin B Gene (PCR), Received Pending
--- NOTE | 2017-06-25 14:31 | Discharge Summary ---
Discharge Summary Date of Service Jun 25, 2017. Discharge Summary Admission Date: Jun 20, 2017 at 18:08 Discharge Date: Jun 25, 2017 Discharge Disposition: [facility] facility Principal Diagnosis: SCROTAL ABSCESS S/P I AND D Secondary Diagnoses/Problems: 1) Coronary artery disease Status: Chronic (2) Dementia Status: Chronic (3) GERD (gastroesophageal reflux disease) Status: Chronic (4) History of prostate cancer Permanent Comment: status post radiation therapy Status: Chronic (5) History of skin cancer Status: Chronic (6) Hypertension Status: Chronic (7) Parkinson disease Status: Chronic (8) Paroxysmal atrial fibrillation Status: Chronic Procedures: CT ABD/PELVIS; 1. No evidence of bowel obstruction. No evidence of free air 2. No evidence of acute diverticulitis. Normal appendix 3. Complex 10 cm right renal cyst with septal calcifications 4. 5 cm fluid collection inferior to the anal verge. This contains air bubbles and likely represents an abscess. This may be localized to the posterior scrotum. Clinical correlation in this regard is advocated RT LOWER EXT US: Normal study CXR: 1. Pulmonary vascular congestion without overt pulmonary edema. 2. Suspected trace bilateral pleural effusions. Consultations: UROLOGY ID Medication Reconciliation New Medications: Ciprofloxacin Hcl (Cipro) 500 Mg Tab 500 MG PO BID for 9 Days, TAB Clindamycin Hcl (Clindamycin Hcl) 300 Mg Cap 600 MG PO TID for 9 Days Lactobacillus Acidophilus (Lactinex) Tab 4 TAB PO TID for 14 Days, TAB Continued Medications: Acetaminophen (Tylenol) 500 Mg Tab 500 MG PO Q4H PRN for Mild Pain Acetaminophen (Tylenol) 650 Mg Supp 650 MG NM Q6H PRN for Temp TEMP >100 Aspirin (Aspirin) 300 Mg Sup 300 MG NM Q6H PRN for Temp TEMP >100 IF TYLENOL SUPP ISN'T EFFECTIVE Aspirin (Aspirin Ec) 81 Mg Tab 81 MG PO DAILY Atorvastatin (Lipitor) 10 Mg Tab 10 MG PO DAILY Carbidopa-Levodopa (Carbidopa/Levodopa Odt) 1 Tab Tab 1 TAB PO HS 10MG/100MG Carbidopa-Levodopa (Carbidopa/Levodopa Odt) 1 Tab Tab 1 TAB PO TID 25MG/100MG Cyanocobalamin (Vitamin B-12) 1,000 Mcg Tab 1000 MCG PO DAILY Furosemide (Lasix) 20 Mg Tab 20 MG PO MWF HOLD OF SBP 105 OR LESS Gabapentin (Neurontin) 300 Mg Cap 300 MG PO TIDM Ketoconazole (Ketoconazole) 45 Appln/15 Gm Cr 1 APPLN TOP BID APPLY TO SCALP AND BEHIND RIGHT EAR Levothyroxine Sodium (Levothyroxine Sodium) 25 Mcg Tab 25 MCG PO QAM Metoprolol Succ (Toprol Xl) (Toprol-Xl) 25 Mg Tabcr 12.5 MG PO HS HOLD IF HR IS 60 OR LESS. HOLD IF SBP IS 105 OR LESS Selenium Sulfide (Selsun Blue) 1 % Sha 1 DOSE TOP 2XWK LATHER HEAD AND AROUND EARS BEFORE SHOWER ON WEDNESDAY AND WEDNESDAY LEAVE ON HEAD UNTIL BATH COMPLETE AND THEN RINSE OFF. LEAVE ON 20 MINUTES Sennosides-Docusate Sodium (Senexon-S) 1 Tab Tab 3 TABS PO AMPM Terbinafine Hcl (Topical) (Lamisil At) 1 % Cre 1 APPLN TOP HS APPLY TO ALL TOENAILS Trazodone Hcl (Trazodone) 50 Mg Tab 25 MG PO HS White Petrolatum (Petrolatum White) 1 Gel Gel 1 APPLN TOP QAM APPLY TO ALL TOENAILS Zinc Oxide (Topical) (Desitin) 40 % Oin 1 APPLN TOP HS APPLY TO COCCYX FOLLOWED BY STOMAHESIVE POWDER Zinc Oxide (Topical) (Desitin Maximum Strength) 40 % Pst 1 APPLN TOP QS APPLY THICK LAYER TO LEFT SCROTUM Admission Information HPI (per Admitting provider): 81-year-old male followed by Dr. Hooper at [facility]. History of ischemic heart disease, Parkinson's disease, dementia, carcinoma of prostate treated with radiation therapy, and other problems noted below. Has advanced dementia. Requires walker + assistance with ambulation. Recently developed scrotal tenderness; arrangements made for outpatient evaluation by Urology. Today the patient had fever, sweats, increasing lethargy and confusion. Noted to have drainage from the scrotum. Brought to the ED for evaluation. The patient is unable to provide any additional history due to his neurologic status. . Physical Exam (per Admitting): CONSTITUTIONAL vital signs as noted above elderly male, somnolent, no acute distress EYES conjunctivae clear; lids normal pupils equal and reactive to light EARS, NOSE, MOUTH AND THROAT external inspection of ears and nose unremarkable unable to assess hearing oropharynx exam limited NECK no masses; trachea midline thyroid normal RESPIRATORY normal respiratory effort; no respiratory distress clear to auscultation CARDIOVASCULAR regular rate and rhythm no murmur, gallop, rub appreciated carotid arteries 2/2 abdominal aorta not palpable pedal pulses diminished capillary refill toes ~ 2 seconds 2+ right pretibial edema; no left pretibial edema GASTROINTESTINAL normal bowel sounds, soft, nontender; no palpable masses no hepatomegaly; no splenomegaly Uncircumcised male. Induration, erythema, tenderness posterior scrotum with foul-smelling drainage. LYMPHATIC no cervical adenopathy MUSCULOSKELETAL no cyanosis; no digital clubbing no apparent calf tenderness unable to assess motor strength due to patient's condition SKIN no rash warm and dry NEUROLOGIC PERRL resting tremor moderate cogwheel rigidity of upper extremities patellar DTR's 1/2 PSYCHIATRIC obtunded . Hospital Course SCROTAL ABSCESS No Sepsis on admission s/p I and D by urology on iv zosyn and clindamycin cx growing pseudomonas and mrsa currently on iv Zosyn and iv vanco ID recommends 14 days total abx and can d/c on cipro and clindamycin po DAILY 2-3 TIMES DRESSINGS. EXPECT TO CLOSE IN A WEEK d/c today f/u with pcp and urology ALTERED MENTAL STATUS Probable encephalopathy secondary to scrotal abscess. seems at baseline currently. hx of dementia monitor for delirium stable CORONARY ARTERY DISEASE on metoprolol and aspirin stable will monitor sob/wheezing? fluids stopped cxr mild congestion will give a dose of Lasix. stable HYPERTENSION on Lopressor Remains stable PARKINSON'S DISEASE on carbidopa/levodopa. Fall precautions. Pureed diet with aspiration precautions when able to resume PO intake postop. DEMENTIA Advanced dementia with superimposed delirium. To Avoid anticholinergic medications and other meds with ROOF TRUSS BUILDER side effects whenever possible. will monitor COMPLEX RIGHT RENAL CYST Noted on CT. Conservative management anticipated in light of multiple comorbidities. EDEMA RIGHT LOWER EXTREMITY no deep venous thrombosis noted on Doppler VTE PROPHYLAXIS scds hep sub q RESUSCITATION STATUS DNR as per admission DISPOSITION discharge to [facility] today Total time spent on discharge = 40MINUTES This includes examination of the patient, discharge planning, medication reconciliation, and communication with other providers. Discharge Instructions Please take this sheet to every appointment for the next month Discharge Instructions Date of Service Jun 25, 2017. Admission Reason for Admission: Scrotal Abscess Discharge Discharge Diagnosis / Problem: scrotal abscess Discharge Goals Goal(s): Decrease discomfort, Improve function Activity Recommendations Activity Level: Up Ad Cristal Therapies: Physical Therapy, Occupational Therapy . Additional Information Patient informed of condition: Yes (has severe dementia) Advance Directives: Yes DNR: Yes Level of Care: Skilled Communicable Disease: No Prognosis: Stable Pablo Catheter: No Instructions / Follow-Up Instructions / Follow-Up FOLLOWUP WITH FAMILY DOCTOR IN ONE WEEK FOLLOWUP WITH UROLOGY IN 2-3 WEEKS PLEASE DO DRESSING 2-3 TIMES DAILY FOR SCROTA ABSCESS I AND D REGION Current Hospital Diet Patient's current hospital diet: Regular Diet Discharge Diet Recommended Diet: Regular Diet Diet Texture: Pureed (blended smooth) Pending Studies Studies pending at discharge: no Physician Orders On Transfer Special Precautions: FALL AND ASPIRATION PRECAUTIONS Vital Signs: EVERY 8HRS Additional Orders: PLEASE DO DRESSING 2-3 TIMES DAILY FOR SCROTA ABSCESS I AND D REGION Medical Emergencies . Who to Call and When: Medical Emergencies: If at any time you feel your situation is an emergency, please call 911 immediately. . Non-Emergent Contact Non-Emergency issues call your: Primary Care Provider . . "Provider Documentation" section prepared by Teja Quiñonez. . Core Measure Problem Core Measures: None
[2017-06-25 16:22] VITALS: PULSE 61; O2SAT 97
[2017-06-25] MEDS: LEVALBUTEROL 1.25MG/0.5ML NEB INH PRN (16:22)
[2017-06-25] MEDS: IPRATROPIUM BROMIDE NEB SOLN 0.02% 2.5 ML VIAL INH PRN (16:22)
[2017-06-26] MEDS ORDERED: VANCOMYCIN IV 1,250 MG in SODIUM CHLORIDE 0.9% 250ML 250 ML IV SCH (14:00)
[2017-06-28] MEDS ORDERED: VANCOMYCIN TROUGH ONE (13:30)
== END 2017-06-25 16:35 | DRG 727 ==
LOC: EDBD 14:00 → C.EDA 14:02 → C.4E 18:08 → ENRESERV 18:40
PROVIDERS: ADMIT Hospitalist; ATTEND Internal Medicine
PROC: 0V953ZZ Drainage of Scrotum, Percutaneous Approach (ICD-10-PCS; principal; 2017-06-21)
DX: N49.2 Inflammatory disorders of scrotum (principal); G93.40 Encephalopathy, unspecified; B95.62 Methicillin resistant Staphylococcus aureus infection as the cause of diseases classified elsewhere; B96.5 Pseudomonas (aeruginosa) (mallei) (pseudomallei) as the cause of diseases classified elsewhere; R60.0 Localized edema; N28.1 Cyst of kidney, acquired; R06.02 Shortness of breath; R09.89 Other specified symptoms and signs involving the circulatory and respiratory systems; I25.10 Atherosclerotic heart disease of native coronary artery without angina pectoris; I48.0 Paroxysmal atrial fibrillation; I11.9 Hypertensive heart disease without heart failure; G20 Parkinson's disease; F03.90 Unspecified dementia, unspecified severity, without behavioral disturbance, psychotic disturbance, mood disturbance, and anxiety; Z51.81 Encounter for therapeutic drug level monitoring; Z79.899 Other long term (current) drug therapy; Z79.82 Long term (current) use of aspirin; Z66 Do not resuscitate; Z85.46 Personal history of malignant neoplasm of prostate; Z92.3 Personal history of irradiation; Z85.828 Personal history of other malignant neoplasm of skin; Z95.810 Presence of automatic (implantable) cardiac defibrillator; Z91.81 History of falling; Z82.3 Family history of stroke